=== PATIENT | female | born 1960 | race African-American/Black ===

== ENCOUNTER 2017-04-10 15:14 | Emergency (ER) | payer MEDICARE, MEDICAID ==
[2017-04-10 15:46] LABS: Hematocrit 36.7 % (36.0-47.0); Red Blood Cell (RBC) Count 3.44 mill/uL (4.20-5.40); White Blood Cell (WBC) Count 3.1 thou/uL (4.8-10.8)
[2017-04-10 16:06] LABS: ALT (SGPT) 11 U/L (8-55); AST (SGOT) 17 U/L (5-34); Alkaline Phosphatase 101 U/L (40-150); Anion Gap 13 mmol/L (10-20); BUN (Urea Nitrogen) 11 mg/dL (9.8-20.1); Bilirubin, Total 0.2 mg/dL (0.2-1.2); CK (CPK) 80 U/L (29-168); Calc. Creatinine Clearance 0 mL/min (70-130); Calcium 8.6 mg/dL (7.8-10.44); Carbon Dioxide 24 mmol/L (22-29); Chloride 99 mmol/L (98-107); Estimated GFR-MDRD 39; Globulin 3.3 g/dL (2.4-3.5); Protein, Total 7.1 g/dL (6.0-8.3)
[2017-04-10 16:10] LABS: Troponin I Less than 0.010 ng/mL (< 0.028)
[2017-04-10 16:28] LABS: #Lymphocytes 1.4 thou/uL (1.20-3.40); #Monocytes 0.3 thou/uL (0.11-0.59); #Neutrophils 1.3 thou/uL (1.40-6.50); %Basophils 1.5 % (0.0-1.0); %Eosinophils 1.1 % (0.0-10.0); %Lymphocytes 46.9 % (21.0-51.0); %Monocytes 9.4 % (0.0-10.0); Macrocytosis SLIGHT = 6-15 cells (100X) (0-5/hpf)
--- NOTE | 2017-04-10 16:38 | RAD ---
PORTABLE CHEST: History: Respiratory distress. Comparison: 05-06-16 FINDINGS: Heart size is within normal limits. Internal defibrillator device is present. The lungs are clear of infiltrate. There are no significant bony findings. There are no signs of failure. IMPRESSION: No active intrathoracic disease. POS: [facility]
[2017-04-10] MEDS ORDERED: Metoclopramide HCl 10 MG/2 ML VIAL ONE (16:42)
[2017-04-10] MEDS ORDERED: Meclizine HCl 25 MG TAB ONE (17:09)
--- NOTE | 2017-04-10 17:24 | CT ---
CT OF THE BRAIN WITHOUT CONTRAST 04/10/17 COMPARISON: 12/01/07 HISTORY: Intermittent dizziness that is exacerbated with standing up. TECHNIQUE: Multiple contiguous axial images were obtained in a CT of the brain without contrast. FINDINGS: There are a few scattered hypodensities in the subcortical and periventricular white matter, likely secondary to small vessel ischemic disease. No large confluent infarction is seen. There is no evide nce of hydrocephalus, intracranial hemorrhage or extra-axial fluid collection. The calvarium and overlying soft tissues are unremarkable. The visualized paranasal sinuses and mast oid air cells are well aerated. IMPRESSION: No evidence of acute intracranial abnormality. POS: [facility]
== END 2017-04-10 19:59 | disposition home or self-care (01) ==
LOC: ERS 15:14
DX: R42 Dizziness and giddiness (principal); I10 Essential (primary) hypertension; F32.9 Major depressive disorder, single episode, unspecified; Z21 Asymptomatic human immunodeficiency virus [HIV] infection status; Z95.0 Presence of cardiac pacemaker; Z79.82 Long term (current) use of aspirin; Z79.899 Other long term (current) drug therapy
CPT/HCPCS: 36415; 70450; 71010; 80053; 82553; 84484; 85025; 93005; 94760; 96365; J2765

== ENCOUNTER 2018-01-22 22:03 | Inpatient (IN) | payer MEDICARE, MEDICAID ==
[2018-01-23 00:22] LABS: Bilirubin Negative (Negative); Blood, Urine Negative (Negative); Clarity CLEAR (Clear); Glucose, Urine (Dipstick) Negative (Negative); Leukocyte Negative (Negative); Nitrite Negative (Negative); Protein, Urine (Dipstick) Negative (Neg-Trace); Specific Gravity, Urine 1.005 (1.002-1.036); Urobilinogen 0.2 mg/dL (0.2-1.0)
[2018-01-23 00:36] LABS: #Lymphocytes 1.4 thou/uL (1.20-3.40); #Monocytes 0.3 thou/uL (0.11-0.59); #Neutrophils 3.6 thou/uL (1.40-6.50); %Basophils 0.5 % (0.0-1.0); %Eosinophils 0.8 % (0.0-10.0); %Lymphocytes 26.3 % (21.0-51.0); %Monocytes 5.5 % (0.0-10.0); %Neutrophils 66.9 % (42.0-75.0); Hemoglobin 12.4 g/dL (12.0-16.0); Mean Corpuscular HGB CONC 35.2 g/dL (32.0-36.0); Mean Corpuscular Hemoglobin 34.9 pg (27.0-31.0); Mean Corpuscular Volume 99.2 fL (78.0-98.0); Mean Platelet Volume 6.9 fL (7.4-10.4); Platelet Count 241 thou/uL (130-400); RBC Distribution Width 10.6 % (11.5-14.5); Red Blood Cell (RBC) Count 3.56 mill/uL (4.20-5.40); White Blood Cell (WBC) Count 5.3 thou/uL (4.8-10.8)
[2018-01-23 00:57] LABS: Anion Gap 13 mmol/L (10-20); BUN (Urea Nitrogen) 12 mg/dL (9.8-20.1); Calc. Creatinine Clearance 0 mL/min (70-130); Carbon Dioxide 23 mmol/L (22-29); Chloride 89 mmol/L (98-107); Estimated GFR-MDRD 56; Glucose 112 mg/dL (70-105); Potassium 3.9 mmol/L (3.5-5.1); Sodium 121 mmol/L (136-145)
[2018-01-23] MEDS ORDERED: Ondansetron ODT 4 MG TAB ONE (01:49)
[2018-01-23] MEDS ORDERED: Ondansetron HCl/PF 4 MG/2 ML Vial IVP PRN (02:54)
[2018-01-23] MEDS ORDERED: Ondansetron ODT 4 MG TAB SL PRN (02:54)
[2018-01-23] MEDS ORDERED: Acetaminophen 325 MG TAB PO PRN (02:54)
--- NOTE | 2018-01-23 03:02 | PDOC.FPRHP ---
- History of Present Illness Chief Complaint: feeling dehydrated History of Present Illness: Pt is 57yo F with a PMH of CHF (with AICD), HIV, and HTN who presented to the ED feeling dehydrated with nausea/vomiting. Pt states she was thirsty at home and had been drinking more water than normal (couldn't quantify). Per family, she always drinks a lot of water. She was also feeling feverish and chilled. Pt complains of dysuria and polyuria. Patient denies COLÓN or vision changes, recent illness or cough, or diarrhea. Denies seizures. Once arriving to the ED, pt was hypertensive 161/100. Belly was distended and a bladder scan showed retained urine. Mercedes drained 750 cc of fluid. UA was normal. BMP revealed sodium to be 121, and chloride to be 81. - Allergies/Adverse Reactions Allergies Allergy/AdvReac Type Severity Reaction Status Date / Time No Known Allergies Allergy Verified 01/23/18 03:16 - Home Medications Medication Instructions Recorded Confirmed Type Aspirin [Aspirin EC] 81 mg PO DAILY 06/24/14 01/23/18 History Furosemide 20 mg PO DAILY 06/24/14 01/23/18 History Nortriptyline HCl 25 mg PO HS 06/24/14 01/23/18 History risperiDONE [RisperDAL] 2 mg PO HS 06/24/14 01/23/18 History traZODone HCl 100 mg PO HS 06/24/14 01/23/18 History Docusate [Colace] 100 mg PO BID #60 cap 05/07/16 01/23/18 Rx Polyethylene Glycol 3350 [Miralax] 17 gm PO DAILY #7 pk 05/07/16 01/23/18 Rx Carvedilol [Carvedilol] 25 mg PO BID 01/23/18 01/23/18 History Dolutegravir Sodium [Tivicay] 50 mg PO DAILY 01/23/18 01/23/18 History Emtricitabine/Tenofov Alafenam 1 tab PO DAILY 01/23/18 01/23/18 History [Descovy 200-25 mg Tablet] Losartan Potassium 50 mg PO DAILY 01/23/18 01/23/18 History - History PMHx: CHF, HIV, HTN, depression, glaucoma PSHx: AICD insertion FHx: sister-leukemia; Mother-PA @ 64 yrs; denied hx DM Social: never smoker, no alcohol or drugs. with 3 children. - Review of Systems General: reports: fever/chills, other (eating well). denies: night sweats, fatigue Eyes: reports: other (denies acute vision changes, states she needs to update her glasses Rx) ENT: denies: nasal congestion, rhinorrhea Respiratory: denies: cough, congestion, shortness of breath, exercise intolerance Cardiovascular: denies: chest pain, palpitation, edema Gastrointestinal: reports: nausea, vomiting, constipation. denies: diarrhea, abdominal pain, GI bleeding Genitourinary: reports: dysuria, polyuria. denies: incontinence, discharge Skin: reports: lesions (large bruise on left upper arm). denies: rashes Neurological: denies: numbness, weakness Psychological: reports: depression (well controlled) - Vital signs BP: [161/100] HR: [66] RR: [18] Tmax: [97.9] Pox: [99]% on [RA] Wt: [] - Physical Exam Constitutional: NAD, awake, alert and oriented HEENT: normocephalic and atraumatic, PERRLA, EOMI, oropharynx clear, other ( mucous membranes slightly dry) Neck: supple, no LAD Heart: RRR, normal S1/S2, pulses present, no edema, other (systolic 2/6 murmur, no rubs or gallops) Lungs: CTAB, no respiratory distress, good air movement, no rales/rhonchi, no wheezing, no retractions Abdomen: soft, bowel sounds present, no masses/distention, other (lower abdomen tender to palpation; no CV tenderness) Musculoskeletal: normal structure, normal tone Neurological: no focal deficit Skin: no rash/lesions, capillary refill <2 seconds, no jaundice Heme/Lymphatic: other (large hematoma on left upper arm) Psychiatric: other (slowed speech) FMR H&P: Results - Labs Result Diagrams: 01/23/18 00:26 01/23/18 09:56 Lab results: WBC 5.3 thou/uL (4.8-10.8) 01/23/18 00:26 Hgb 12.4 g/dL (12.0-16.0) 01/23/18 00:26 Hct 35.4 % (36.0-47.0) L 01/23/18 00:26 MCV 99.2 fL (78.0-98.0) H 01/23/18 00:26 Plt Count 241 thou/uL (130-400) 01/23/18 00:26 Neutrophils % 66.9 % (42.0-75.0) 01/23/18 00:26 Sodium 121 mmol/L (136-145) L 01/23/18 00:26 Potassium 3.9 mmol/L (3.5-5.1) 01/23/18 00:26 Chloride 89 mmol/L (98-107) L 01/23/18 00:26 Carbon Dioxide 23 mmol/L (22-29) 01/23/18 00:26 BUN 12 mg/dL (9.8-20.1) 01/23/18 00:26 Creatinine 1.20 mg/dL (0.6-1.1) H 01/23/18 00:26 Glucose 112 mg/dL (70-105) H 01/23/18 00:26 Calcium 9.0 mg/dL (7.8-10.44) 01/23/18 00:26 Urine Ketones Negative mg/dL (Negative) 01/22/18 23:50 Urine Blood Negative (Negative) 01/22/18 23:50 Urine Nitrite Negative (Negative) 01/22/18 23:50 Ur Leukocyte Esterase Negative (Negative) 01/22/18 23:50 FMR H&P: A/P - Problem List (1) Hyponatremia with decreased serum osmolality Current Visit: Yes Status: Chronic Code(s): E87.1 - HYPO-OSMOLALITY AND HYPONATREMIA (2) Acute urinary retention Current Visit: Yes Status: Acute Code(s): R33.8 - OTHER RETENTION OF URINE (3) Polydipsia Current Visit: Yes Status: Acute Code(s): R63.1 - POLYDIPSIA (4) HIV (human immunodeficiency virus infection) Current Visit: No Status: Chronic Comment: on atripla (5) Hypertension Current Visit: No Status: Chronic Code(s): I10 - ESSENTIAL (PRIMARY) HYPERTENSION (6) Glaucoma Current Visit: Yes Status: Chronic Code(s): H40.9 - UNSPECIFIED GLAUCOMA (7) Hypochloremia Current Visit: Yes Status: Acute Code(s): E87.8 - OTH DISORDERS OF ELECTROLYTE AND FLUID BALANCE, NEC (8) Depression Current Visit: Yes Status: Chronic Code(s): F32.9 - MAJOR DEPRESSIVE DISORDER, SINGLE EPISODE, UNSPECIFIED - Plan Euvolemic Hypotonic Hyponatremia -Sodium 121, polydipsia. -urine osm-57 -urinary sodium- 21 -waiting on serum osmolarity -Restrict fluids to 1000 ml, correct Na slowly. Trend BMP -Regular diet -TSH Hypochloremia -fluid restricted, following BMPs Acute Urinary retention -mercedes in place -UA nl -strict I/Os -Neurogenic bladder vs constipation HIV -continue home meds after med rec HTN -labetolol PRN Depression -well controlled. continue home meds after med rec Glaucoma -continue home meds Code: full FMR H&P: Upper Level - Pertinent history 57 yr old AAF with PMH of HIV, CHF with AICD who presents for subjective fever, chills, and feeling dehydrated. She states she is having painful urination and later in the afternoon she couldnt urinate. She reports excessive water intake. Her family emphasizes that she is always drinking water. Likely around 7-8 water bottles daily. She denies cough, sore throat, ear pain, chest pain, SOB, skin changes, or new rashes. Denies diarrhea. She is followed by Dr. Ritchie for her HIV. - Pertinent findings Gen: NAD, alert and oriented to person, place, time, situation Cardiac: RRR, no M/R/G Lungs: CTAB, no wheezes, rhales, rhonchi Neuro: CN 2-12 intact, strength 5/5 in BLE/BUE EXT: 2+ post tibial pulse bilaterally, no edema in BLE - Plan Date/Time: 01/23/18 0247 I, [Dulce De Leon], have evaluated this patient and agree with findings/plan as outlined by help desk intern resident. Pertinent changes/additions are listed here. 57 yr old female with acute urinary retention and feeling dehydrated. 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 Acute urinary retention -s/p mercedes -monitor I/O -unclear etiology Mild ORLANDO on CKD stage 2 -monitor daily -possibly 2/2 urinary retention HTN -cont home meds when list available -labetalol PRN for now HIV -patient afebrile, no tachycardia, no WBC, normal RR -cont home meds CHF -s/p AICD -[facility]2016 and EF of 50-55%, patient unsure of status Depression Glaucoma Attending Addendum - Attending Addendum Date/Time: 01/23/18 0930 I personally evaluated the patient and discussed the management with Dr. Debra Santiago /Haley. I agree with the History, Examination, Assessment and Plan documented above with any addition or exceptions noted below. Patient with history of HIV, HTN, CHF with normal EF 2015, Depression presenting with feelings of dehydration, nausea, vomiting over the last few days. Reports generally not feeling well. On admission, she was noted to have a euvolemic hypotonic hyponatremia, urinary retention that was alleviated after mercedes catheter placement, and a mild ORLANDO on CKD. 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 She does endorse drinking lots of fluids recently. We do not currently have a medication list on her but will obtain that. Mercedes has been placed and will attempt voiding trial after medication effect can be excluded. Consider Urology consult if no improvement. Monitor renal function since we will be fluid restricting her at this time for her hyponatremia. Sodium has been steadily increasing and anticipate 1-2 days hospitalization if she continues to improve.
[2018-01-23 04:20] LABS: Osmolality, Urine 57 mOsm/kg (300-900)
[2018-01-23] MEDS ORDERED: Labetalol HCl 100 MG/20 ML VIAL SLOW IVP PRN (04:23)
[2018-01-23 04:37] LABS: Sodium, Urine 21 mmol/L (Not Available)
[2018-01-23 06:12] LABS: Anion Gap 11 mmol/L (10-20); BUN (Urea Nitrogen) 10 mg/dL (9.8-20.1); Calc. Creatinine Clearance 69 mL/min (70-130); Calcium 9.4 mg/dL (7.8-10.44); Carbon Dioxide 25 mmol/L (22-29); Chloride 97 mmol/L (98-107); Estimated GFR-MDRD 59; Glucose 103 mg/dL (70-105); Sodium 129 mmol/L (136-145)
--- NOTE | 2018-01-23 08:20 | PDOC.FM ---
- Subjective Subjective: Ms. Cabrales feels better this morning. Denies nausea, vomiting, fever. Feels cold in bed. She still has some lower abdominal tenderness, but it has improved greatly. Mercedes in place. will bring med list this morning. - Objective MAR Reviewed: Yes Vital Signs & Weight: Vital Signs (12 hours) Temp Pulse Resp BP Pulse Ox 01/23/18 08:00 97.6 F 99 18 121/75 94 L 01/23/18 03:47 98 F 64 20 I&O: 01/22/18 01/23/18 01/24/18 06:59 06:59 06:59 Output Total 4000 Balance -4000 Result Diagrams: 01/23/18 00:26 01/23/18 05:15 Phys Exam - Physical Examination Constitutional: NAD HEENT: moist MMs, oral pharynx no lesions Respiratory: no wheezing, no rales, no rhonchi, clear to auscultation bilateral Cardiovascular: RRR systolic murmur, heard best in aortic area Gastrointestinal: soft, no distention, positive bowel sounds bilateral lower quadrants mildly TTP Musculoskeletal: no edema, pulses present Neurological: non-focal Psychiatric: normal affect, A&O x 3 Skin: cap refill <2 seconds Dx/Plan - Plan Plan: Euvolemic hypotonic hyponatremia asymptomatic -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 Acute urinary retention -s/p mercedes -monitor I/O -unclear etiology Hypochloremia -89 Mild ORLANDO on CKD stage 2 -monitor daily -possibly 2/2 urinary retention HTN -cont home meds when list available -labetalol PRN for now HIV -patient afebrile, no tachycardia, no WBC, normal RR -cont home meds CHF -s/p AICD -last recorded echo in [facility] is in 04/2016 and EF of 50-55%, patient unsure of status Depression Glaucoma
[2018-01-23 10:43] LABS: Amphetamine Not Detected (NotDetected); Barbiturates Screen Not Detected (NotDetected); Benzodiazepine Screen Not Detected (NotDetected); Cocaine Metabolite Screen Not Detected (NotDetected); Medtox Control Line Valid? VALID (VALID); Medtox Reader # READER 1; Methadone Not Detected (NotDetected); Methamphetamine Not Detected (NotDetected); Opiate Screen Not Detected (NotDetected); Oxycodone Screen Not Detected (NotDetected); Phencyclidine (PCP) Not Detected (NotDetected); THC/Cannabinoid Screen Not Detected (NotDetected); Tricyclic Screen Not Detected (NotDetected)
[2018-01-23 11:16] LABS: Anion Gap 11 mmol/L (10-20); BUN (Urea Nitrogen) 10 mg/dL (9.8-20.1); Calc. Creatinine Clearance 68 mL/min (70-130); Calcium 9.5 mg/dL (7.8-10.44); Carbon Dioxide 25 mmol/L (22-29); Chloride 101 mmol/L (98-107); Estimated GFR-MDRD 58; Glucose 108 mg/dL (70-105); Potassium 4.1 mmol/L (3.5-5.1); Sodium 133 mmol/L (136-145)
[2018-01-23] MEDS: Enoxaparin Sodium 40 MG/0.4 ML SYRINGE SC SCH (11:49)
[2018-01-23 11:51] LABS: Bacteria/HPF None Seen HPF (None Seen); Hyaline Casts/LPF 0-3 HYALINE CAST LPF (0-3 Hyaline); Pathc Cast-AUWi Flag 0.43 (0-2.49); Squamous Epithelial 0-3 HPF (0-3)
[2018-01-23 12:00] LABS: Renal Epithelial None Seen HPF (0-3); Transitional Epithelial NONE SEEN HPF (0-3)
--- NOTE | 2018-01-23 14:56 | CON ---
DATE OF CONSULTATION: 01/23/2018 Consultation was requested for urinary retention. HISTORY OF PRESENT ILLNESS: The patient is a 57-year-old female who was in her usual state of health except otherwise felt dehydrated, so she was drinking a significant amount of water, but unable to void, so she felt like she needed to drink more water and was still unable to void, even though she had sensation and when she attempted all she would have is burning, but not with urination because she was unable to pee, only with the urge to go. When she was urinating previously, she had no burning, cloudy or stinky urine. Normally, she has frequency every 2-3 hours, nocturia x3 for good amounts. She does admit to some hesitancy, weak stream and prior episodes of retention, not requiring a catheter for which she had to seek care. She does not wear pads or liners. She has never had gross hematuria, urinary tract infections or stones. PAST MEDICAL HISTORY: Significant for HIV diagnosed approximately 10 years ago obtained from a sexual encounter. She is taking medicines. She is not sure which ones for this and it has been stable. CHF, hypertension, depression, glaucoma, and remote history of seizures with the last being 5 years ago. PAST SURGICAL HISTORY: She had an AICD approximately 10 years ago. PAST [employer] L[employer]: She had 3 vaginal deliveries. She is postmenopausal and has had no periods. MEDICATIONS: Include aspirin 81 mg and then she is not sure what her medicines are, but she takes medicine for HIV, hypertension, depression, and glaucoma. She does not take anything else over the counter other than the aspirin. REVIEW OF SYSTEMS: Reveals no cough, no diarrhea, no recent concern for seizures or aura. No headache, shortness of breath. She does admit to cough this morning, but it has been dry. No fever or chills, although she has felt cold. No nausea or vomiting or diarrhea or constipation. She has not had a headache or vision changes. Her mammogram and Pap smear were greater than 5 years ago and both were normal then. She has never had a colonoscopy, it has been set up for this, but just has not been able to follow through. ALLERGIES: None. SOCIAL HISTORY: She does not drink, smoke or use drugs. She is with 3 kids. FAMILY HISTORY: Significant for a sister dying at 23 of leukemia. Niece had stomach cancer. Mother at 64 of heart attack. Father of epilepsy at 74. PHYSICAL EXAMINATION: VITAL SIGNS: Reveals she has been afebrile, temperature currently is 97.6, heart rate 60s-90s, satting 94%-98% on room air, blood pressure previously was elevated and now is only 121/75 and urine output is measured at 4 liters from overnight, although I was told she only had approximately 800 when the catheter was placed. There is brisk diuresis if not actual significant over-distention of the bladder in addition to that previously documented. GENERAL: She appears comfortable in the bed. She is oriented. HEENT: She does have a tremor of the jaw without any obvious skin lesions, diaphoresis or hyperemia. NECK: She has no JVD. She has no scleral icterus. CARDIOVASCULAR: Her farley was regular rate and rhythm, not tachycardic for me. There were no obvious murmurs, gallops or rubs. LUNGS: Clear to auscultation bilaterally. ABDOMEN: Soft, nondistended, nontender, no incisions noted. GENITOURINARY: She had no CVA tenderness. Catheter was draining yellow urine, but currently clamped because they are going to obtain urinalysis specimen, but the tubing fluid was clear yellow. EXTREMITIES: She had no lower extremity edema. LABORATORY DATA: Reveal mild anemia at 12.4 and 35.4. Her BUN and creatinine have improved and now are 10 and 1.14, it was 1.20 when she was admitted, it has been as high as 1.62 back in 03/2017 and more recently was 0.92 in August of this year. Her urinalysis by dip was negative; however, it was not a microscope analysis. There is no upper tract imaging at this time. ASSESSMENT AND PLAN: We have a 57-year-old female with hyponatremia is the main reason she was admitted in addition to her urinary retention. The former was likely because of excessive water intake, which exacerbated the latter. We reviewed this in detail as well as avoiding constipation, adding an alpha priya (tamsulosin) and ensuring a normal microscopic urinalysis. We discussed leaving the catheter in to allow the bladder to decompress especially if it was distended more than 1-2 liters. If she happens to stay till Saturday, then I will write for a voiding trial for Saturday morning and if she is able to void with a residual of less than 300, then a catheter does not have to be replaced. If she is to be discharged before Saturday, then she should go with the catheter and on tamsulosin and follow up in my office for a voiding trial on Saturday at 1:30 on the . Finally, if she stays through Saturday and fails a voiding trial before going home, the catheter should be replaced if her residual is more than 300 and please call my office because they would not be need to see her the next day if the catheter had to be replaced on Saturday. I wrote a prescription for tamsulosin. I ordered a microscopic analysis and unless this is concerning for either bladder infection or microhematuria, I will hold off on upper tract imaging. Of note, the bladder distention may result in microhematuria, so I will keep this in mind. For now, start tamsulosin, treat the hyponatremia per Family Medicine and anticipate followup in the office for a voiding trial if she does not have one prior to discharge. I will be out of town on Saturday and Saturday, but will leave instructions with those covering me. PAIGE
[2018-01-23] MEDS ORDERED: risperiDONE 1 MG TAB PO SCH (21:00)
[2018-01-23] MEDS: Carvedilol 25 MG TAB PO SCH (21:57)
[2018-01-23] MEDS: Docusate 100 MG CAP PO SCH (21:57)
[2018-01-24 03:20] VITALS: BMI 30.1
--- NOTE | 2018-01-24 05:15 | PDOC.FM ---
- Subjective Subjective: Mrs. Cabrales feels well and has no complaints. Eating well and following fluid restriction. Tolerating catheter well. She says she is looking forward to going home. - Objective MAR Reviewed: Yes Vital Signs & Weight: Vital Signs (12 hours) Temp Pulse Resp BP Pulse Ox 01/23/18 20:00 98.7 F 84 18 114/64 95 Weight Weight 81.98 kg I&O: 01/22/18 01/23/18 01/24/18 06:59 06:59 06:59 Intake Total 490 Output Total 4000 2125 Balance -4000 -1635 Result Diagrams: 01/23/18 00:26 01/24/18 05:24 <Lola Santillan - Last Filed: 01/24/18 08:21> - Objective Vital Signs & Weight: Vital Signs (12 hours) Temp Pulse Resp BP Pulse Ox 01/24/18 09:25 84 102/60 01/24/18 08:00 98.5 F 84 18 92 L 01/24/18 07:40 98.5 F 86 18 98/57 L 92 L Weight Weight 81.98 kg I&O: 01/23/18 01/24/18 01/25/18 06:59 06:59 06:59 Intake Total 490 500 Output Total 4000 2125 900 Balance -4000 -1635 -400 Result Diagrams: 01/23/18 00:26 01/24/18 05:24 <Cal Ernandez - Last Filed: 01/24/18 13:54> Phys Exam - Physical Examination Constitutional: NAD HEENT: moist MMs Respiratory: no rales, no rhonchi, clear to auscultation bilateral Cardiovascular: RRR systolic murmur heard best over aortic area Gastrointestinal: soft, non-tender, positive bowel sounds Musculoskeletal: no edema Neurological: non-focal Psychiatric: normal affect Skin: normal turgor, cap refill <2 seconds <Lola Santillan - Last Filed: 01/24/18 08:21> Dx/Plan (1) Hyponatremia with decreased serum osmolality Code(s): E87.1 - HYPO-OSMOLALITY AND HYPONATREMIA Status: Chronic (2) Primary polydipsia Code(s): R63.1 - POLYDIPSIA Status: Acute (3) Acute urinary retention Code(s): R33.8 - OTHER RETENTION OF URINE Status: Acute (4) Depression Code(s): F32.9 - MAJOR DEPRESSIVE DISORDER, SINGLE EPISODE, UNSPECIFIED Status : Chronic (5) HIV (human immunodeficiency virus infection) Status: Chronic (6) Hypertension Code(s): I10 - ESSENTIAL (PRIMARY) HYPERTENSION Status: Chronic - Plan Plan: Euvolemic Hypotonic Hyponatremia 2/2 primary polydipsia -Reviewed medication list for possible causes hyponatremia as well as urinary retention. Nortriptylene, losartan could have contributed. Pt responded well to fluid restriction alone, primary polydipsia seems more likely at this time. Home meds were restarted, will continue to monitor I/Os and Na+ correction. -Sodium 121 on admission. 137 now. -urine osm-57, urinary sodium- 21, serum osm 272 -TSH normal -Restrict fluids to 1000 ml Acute Urinary retention -Medications vs neurogenic bladder vs constipation -mercedes in place -strict I/Os -I/Os: net -1635 in past 24hrs. -Dr. Travis consulted: avoid constipation, tamsulosin, microscopic UA -voiding trial protocol per Dr. Travis CKD stage 3 -Cr 1.2 on admission->1.25 today with GFR in the 50s -Cr 0.95 in 2016. Cr 1.6 (03/2017) Hypochloremia, resolved -following BMP HIV -continue home meds Constipation -continue home meds HTN -continue home meds Depression -continue home meds Glaucoma -continue home meds <Lola Santillan - Last Filed: 01/24/18 08:21> (1) Hyponatremia with decreased serum osmolality Code(s): E87.1 - HYPO-OSMOLALITY AND HYPONATREMIA Status: Chronic (2) Acute urinary retention Code(s): R33.8 - OTHER RETENTION OF URINE Status: Acute (3) Polydipsia Code(s): R63.1 - POLYDIPSIA Status: Acute (4) HIV (human immunodeficiency virus infection) Status: Chronic (5) Hypertension Code(s): I10 - ESSENTIAL (PRIMARY) HYPERTENSION Status: Chronic (6) Glaucoma Code(s): H40.9 - UNSPECIFIED GLAUCOMA Status: Chronic (7) Hypochloremia Code(s): E87.8 - OTH DISORDERS OF ELECTROLYTE AND FLUID BALANCE, NEC Status: Acute (8) Depression Code(s): F32.9 - MAJOR DEPRESSIVE DISORDER, SINGLE EPISODE, UNSPECIFIED Status : Chronic <Cal Ernandez - Last Filed: 01/24/18 13:54> Attending Addendum - Attending Addendum Date/Time: 01/24/18 5244 I personally evaluated the patient and discussed the management with Dr. Santillan. I agree with the History, Examination, Assessment and Plan documented above with any addition or exceptions noted below. Patient doing well this morning and feels back to baseline. Her sodium level has returned to normal, and we expect that this is likely a combination of polydipsia as confirmed by her family, and medication effect. She has done well on fluid restriction and has instructions on how to continue this outpatient. She will follow up with psychiatry to discuss alternative treatment regimens that may not increase her risk of hyponatremia. Her urine retention is stable and instructions provided by Urology. Patient to be discharged with outpatient urology follow up on Saturday. <Cal Ernandez - Last Filed: 01/24/18 13:54>
[2018-01-24 05:54] LABS: Anion Gap 10 mmol/L (10-20); BUN (Urea Nitrogen) 11 mg/dL (9.8-20.1); Calc. Creatinine Clearance 63 mL/min (70-130); Calcium 9.2 mg/dL (7.8-10.44); Carbon Dioxide 26 mmol/L (22-29); Chloride 105 mmol/L (98-107); Estimated GFR-MDRD 53; Glucose 94 mg/dL (70-105); Potassium 4.3 mmol/L (3.5-5.1); Sodium 137 mmol/L (136-145)
[2018-01-24] MEDS ORDERED: Aspirin 81 mg Enteric Coated Tablet PO SCH (09:00)
[2018-01-24] MEDS ORDERED: Polyethylene Glycol 3350 17 GM Packet PO SCH (09:00)
[2018-01-24] MEDS ORDERED: Emtricitabine/Tenofov Alafenam [Descovy 200-25 Mg Tablet] PO SCH (09:00)
[2018-01-24] MEDS ORDERED: Losartan 25 MG TAB PO SCH (09:00)
[2018-01-24] MEDS ORDERED: Furosemide 40 MG TAB PO SCH (09:00)
[2018-01-24] MEDS ORDERED: Tamsulosin HCl 0.4 MG CAP PO SCH (09:00)
[2018-01-24] MEDS ORDERED: Dolutegravir Sodium [Tivicay] 50 MG PO SCH (09:00)
[2018-01-24] MEDS: Carvedilol 25 MG TAB PO SCH (09:25)
[2018-01-24] MEDS: Enoxaparin Sodium 40 MG/0.4 ML SYRINGE SC SCH (09:25)
[2018-01-24] MEDS: Docusate 100 MG CAP PO SCH (09:25)
[2018-01-24 09:40] VITALS: BP 102/60
[2018-01-24 11:58] VITALS: TEMP 98.5
[2018-01-24] MEDS ORDERED: Nortriptyline HCl 25 MG CAP PO SCH (21:00)
--- NOTE | 2018-01-25 16:11 | DIS ---
DATE OF ADMISSION: 01/23/2018 DATE OF DISCHARGE: 01/24/2018 RESIDENT: Dr. Lola Santillan. ADMITTING ATTENDING: Cal Ernandez M.D. DISCHARGE ATTENDING: Cal Ernandez M.D. CONSULTATIONS: Dr. Travis, Urology. PROCEDURES: None. PRIMARY DIAGNOSES: 1. 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 2. Acute urinary retention. SECONDARY DIAGNOSES: Chronic kidney disease stage 3, HIV, constipation, hypertension, depression, gl aucoma. DISCHARGE MEDICATIONS: 1. Risperidone 2 mg p.o. at bedtime. 2. Nortriptyline 25 mg p.o. at bedtime. 3. Furosemide 20 mg p.o. daily. 4. Aspirin 81 mg p.o. daily. 5. Docusate 100 mg p.o. b.i.d. 6. MiraLax 17 grams p.o. daily. 7. Carvedilol 25 mg p.o. b.i.d. 8. Descovy one tab p.o. daily. 9. Tivicay 50 mg p.o. daily. 10. Losartan 50 mg p.o. daily. DISCONTINUED MEDICATIONS: Trazodone 100 mg p.o. at bedtime because patient was not taking at home. HISTORY OF PRESENT ILLNESS: The patient is a 57-year-old female who presented to the ER feeling dehy drated with nausea and vomiting. She says that she is very thirsty and was drinking more water than normal. Also felt feverish and chilled. She also complained of some dysuria and polyuria. Labs wer e drawn and she was found to be hyponatremic. The hyponatremia was hypotonic and euvolemic. I's and O's were monitored. Bladder scan showed 750 mL and patient had a catheter placed. The patient was placed on 1000 mL fluid restriction and her sodium levels gradually improved to normal limits. Medic ations as cause of her condition were considered, but primary polydipsia seemed to be the most likely etiology for this admission. Could consider medication changes in the outpatient setting for possib le hyponatremia and urinary retention causes. DISPOSITION: Stable. DISCHARGE INSTRUCTIONS: Home. DIET: Regular diet with fluid restriction. ACTIVITY: As tolerated. FOLLOWUP: With Dr. Travis on Saturday at 1:30 p.m. to do a voiding trial.
== END 2018-01-24 14:17 | disposition home or self-care (01) | DRG 641 ==
LOC: ERS 22:03 → ONC 01-23 01:48 → OBSVTOIN 01-23 03:08
PROVIDERS: ADMIT Student in an Organized Health Care Education/Training Program; ATTEND Student in an Organized Health Care Education/Training Program
DX: E87.1 Hypo-osmolality and hyponatremia (principal); I13.0 Hypertensive heart and chronic kidney disease with heart failure and stage 1 through stage 4 chronic kidney disease, or unspecified chronic kidney disease; E86.0 Dehydration; R63.1 Polydipsia; R33.9 Retention of urine, unspecified; N18.3 Chronic kidney disease, stage 3 (moderate); K59.00 Constipation, unspecified; Z21 Asymptomatic human immunodeficiency virus [HIV] infection status; F32.9 Major depressive disorder, single episode, unspecified; Z79.82 Long term (current) use of aspirin; Z95.810 Presence of automatic (implantable) cardiac defibrillator
CPT/HCPCS: 36415; 51702; 51798; 80048; 80306; 81003; 81015; 83930; 83935; 84133; 84300; 84443; 85025; 87086; A4216; A4353; J1650; Q0162

== ENCOUNTER 2018-04-17 23:23 | Emergency (ER) | payer MEDICARE, MEDICAID ==
[2018-04-18 00:22] LABS: Bilirubin Negative (Negative); Blood, Urine Negative (Negative); Clarity CLEAR (Clear); Glucose, Urine (Dipstick) Negative (Negative); Leukocyte Large (Negative); Nitrite Negative (Negative); Protein, Urine (Dipstick) Negative (Neg-Trace); Urobilinogen 0.2 mg/dL (0.2-1.0)
[2018-04-18 00:25] LABS: Pathc Cast-AUWi Flag 0.29 (0-2.49)
[2018-04-18 00:30] LABS: Specific Gravity, Urine 1.002 (1.002-1.036)
[2018-04-18 00:40] LABS: RBC/HPF 0-3 HPF (0-3)
[2018-04-18 00:41] LABS: Bacteria/HPF None Seen HPF (None Seen); Hyaline Casts/LPF NONE SEEN LPF (0-3 Hyaline); Renal Epithelial None Seen HPF (0-3); Transitional Epithelial NONE SEEN HPF (0-3); Yeast-All Forms None Seen HPF (None Seen)
== END 2018-04-18 01:33 | disposition home or self-care (01) ==
LOC: ERS 23:23
DX: R42 Dizziness and giddiness (principal); I10 Essential (primary) hypertension; B20 Human immunodeficiency virus [HIV] disease; F32.9 Major depressive disorder, single episode, unspecified
CPT/HCPCS: 81003; 81015; 99283

== ENCOUNTER 2018-11-08 21:56 | Emergency (ER) | payer MEDICARE, MEDICAID ==
[2018-11-08 23:30] LABS: #Lymphocytes 1.4 thou/uL (1.20-3.40); #Monocytes 0.3 thou/uL (0.11-0.59); #Neutrophils 3.8 thou/uL (1.40-6.50); %Basophils 0.8 % (0.0-1.0); %Eosinophils 0.7 % (0.0-10.0); %Lymphocytes 24.8 % (21.0-51.0); %Monocytes 5.3 % (0.0-10.0); %Neutrophils 68.5 % (42.0-75.0); Hemoglobin 12.8 g/dL (12.0-16.0); Mean Corpuscular HGB CONC 33.8 g/dL (32.0-36.0); Mean Corpuscular Hemoglobin 34.4 pg (27.0-31.0); Platelet Count 288 thou/uL (130-400); RBC Distribution Width 10.8 % (11.5-14.5); Red Blood Cell (RBC) Count 3.73 mill/uL (4.20-5.40); White Blood Cell (WBC) Count 5.6 thou/uL (4.8-10.8)
--- NOTE | 2018-11-08 23:33 | RAD ---
PORTABLE CHEST ONE VIEW: 11/08/18 at 11:15 p.m. HISTORY: Swelling of the bilateral lower extremities. FINDINGS: Comparison made with exam of 04/10/17. A left AICD remains in place. The heart size is normal. The lungs are well expanded without focal ar eas of consolidation, pneumothoraces, ross pulmonary edema or pleural effusions. IMPRESSION: NO acute process. POS: [facility]
[2018-11-08 23:50] LABS: ALT (SGPT) 9 U/L (8-55); AST (SGOT) 16 U/L (5-34); Albumin 4.1 g/dL (3.5-5.0); Alkaline Phosphatase 93 U/L (40-150); Anion Gap 13 mmol/L (10-20); BUN (Urea Nitrogen) 12 mg/dL (9.8-20.1); Bilirubin, Total 0.6 mg/dL (0.2-1.2); Calc. Creatinine Clearance 0 mL/min (70-130); Calcium 9.6 mg/dL (7.8-10.44); Carbon Dioxide 25 mmol/L (22-29); Chloride 95 mmol/L (98-107); Estimated GFR-MDRD 55; Glucose 100 mg/dL (70-105); Potassium 4.2 mmol/L (3.5-5.1); Protein, Total 7.1 g/dL (6.0-8.3); Sodium 129 mmol/L (136-145)
== END 2018-11-09 00:10 | disposition home or self-care (01) ==
LOC: ERS 21:56
DX: M79.89 Other specified soft tissue disorders (principal); I10 Essential (primary) hypertension; B20 Human immunodeficiency virus [HIV] disease; F32.9 Major depressive disorder, single episode, unspecified
CPT/HCPCS: 36415; 71045; 80053; 83880; 84484; 85025; 93005

== ENCOUNTER 2018-11-15 00:19 | Emergency (ER) | payer MEDICARE, MEDICAID ==
[2018-11-15 01:15] LABS: #Lymphocytes 1.3 thou/uL (1.20-3.40); #Monocytes 0.4 thou/uL (0.11-0.59); #Neutrophils 3.1 thou/uL (1.40-6.50); %Basophils 0.2 % (0.0-1.0); %Lymphocytes 26.8 % (21.0-51.0); %Monocytes 8.5 % (0.0-10.0); %Neutrophils 63.4 % (42.0-75.0); Hemoglobin 12.3 g/dL (12.0-16.0); Mean Corpuscular Hemoglobin 34.2 pg (27.0-31.0); Mean Platelet Volume 6.9 fL (7.4-10.4); Platelet Count 283 thou/uL (130-400); RBC Distribution Width 10.8 % (11.5-14.5); Red Blood Cell (RBC) Count 3.59 mill/uL (4.20-5.40); White Blood Cell (WBC) Count 4.8 thou/uL (4.8-10.8)
[2018-11-15 01:35] LABS: ALT (SGPT) 8 U/L (8-55); AST (SGOT) 13 U/L (5-34); Alkaline Phosphatase 94 U/L (40-150); Anion Gap 12 mmol/L (10-20); BUN (Urea Nitrogen) 9 mg/dL (9.8-20.1); Bilirubin, Total 0.4 mg/dL (0.2-1.2); Calc. Creatinine Clearance 0 mL/min (70-130); Calcium 9.1 mg/dL (7.8-10.44); Carbon Dioxide 22 mmol/L (22-29); Chloride 98 mmol/L (98-107); Estimated GFR-MDRD 68; Globulin 3.1 g/dL (2.4-3.5); Glucose 108 mg/dL (70-105); Lipase 17 U/L (8-78); Potassium 3.4 mmol/L (3.5-5.1); Protein, Total 7.1 g/dL (6.0-8.3); Sodium 129 mmol/L (136-145)
[2018-11-15 01:53] LABS: Clarity Clear (Clear)
[2018-11-15 01:54] LABS: Bilirubin Negative (Negative); Blood, Urine Trace (Negative); Glucose, Urine (Dipstick) Negative (Negative); Leukocyte Large (Negative); Nitrite Negative (Negative); Protein, Urine (Dipstick) Negative (Neg-Trace); Specific Gravity, Urine 1.001 (1.002-1.036); Urobilinogen 0.2 mg/dL (0.2-1.0)
[2018-11-15 02:02] LABS: Bacteria/HPF None Seen HPF (None Seen); Crystals/HPF None Seen HPF (Negative); Hyaline Casts/LPF NONE SEEN LPF (0-3 Hyaline); Oval Fat Bodies/HPF None Seen HPF (None Seen); RBC/HPF 0-3 HPF (0-3); Renal Epithelial None Seen HPF (0-3); Sperm/HPF None Seen HPF (None Seen); Squamous Epithelial None Seen HPF (0-3); Transitional Epithelial 0-3 HPF (0-3); Trichomonas/HPF None Seen HPF (None Seen); Yeast-All Forms None Seen HPF (None Seen)
== END 2018-11-15 02:53 | disposition home or self-care (01) ==
LOC: ERS 00:19
DX: N39.0 Urinary tract infection, site not specified (principal); B20 Human immunodeficiency virus [HIV] disease; F32.9 Major depressive disorder, single episode, unspecified; I11.0 Hypertensive heart disease with heart failure; I50.9 Heart failure, unspecified
CPT/HCPCS: 36415; 51701; 80053; 81003; 81015; 83690; 84484; 85025; 87086; 93005; A4353

== ENCOUNTER 2019-03-14 19:33 | Emergency (ER) | payer MEDICARE, MEDICAID ==
[2019-03-14 20:06] LABS: #Eosinphils 0.1 thou/uL (0.0-0.7); #Monocytes 0.4 thou/uL (0.11-0.59); #Neutrophils 2.6 thou/uL (1.40-6.50); %Basophils 0.7 % (0.0-1.0); %Lymphocytes 38.5 % (21.0-51.0); %Monocytes 8.2 % (0.0-10.0); %Neutrophils 51.7 % (42.0-75.0); Hemoglobin 12.1 g/dL (12.0-16.0); Mean Corpuscular HGB CONC 34.5 g/dL (32.0-36.0); Mean Corpuscular Hemoglobin 34.8 pg (27.0-31.0); Mean Platelet Volume 6.9 fL (7.4-10.4); Platelet Count 244 thou/uL (130-400); RBC Distribution Width 10.8 % (11.5-14.5); Red Blood Cell (RBC) Count 3.48 mill/uL (4.20-5.40); White Blood Cell (WBC) Count 5.1 thou/uL (4.8-10.8)
[2019-03-14 20:26] LABS: ALT (SGPT) 10 U/L (8-55); AST (SGOT) 14 U/L (5-34); Albumin 3.9 g/dL (3.5-5.0); Alkaline Phosphatase 120 U/L (40-150); Anion Gap 13 mmol/L (10-20); BUN (Urea Nitrogen) 8 mg/dL (9.8-20.1); Bilirubin, Total 0.3 mg/dL (0.2-1.2); CK (CPK) 148 U/L (29-168); Calc. Creatinine Clearance 0 mL/min (70-130); Calcium 8.4 mg/dL (7.8-10.44); Carbon Dioxide 24 mmol/L (22-29); Chloride 87 mmol/L (98-107); Estimated GFR-MDRD 51; Globulin 2.6 g/dL (2.4-3.5); Glucose 92 mg/dL (70-105); Lipase 19 U/L (8-78); Potassium 3.6 mmol/L (3.5-5.1); Protein, Total 6.5 g/dL (6.0-8.3); Sodium 120 mmol/L (136-145)
--- NOTE | 2019-03-14 20:30 | RAD ---
PORTABLE CHEST ONE VIEW: 03/14/19 at 8:13 p.m. HISTORY: Chest pain. FINDINGS: Comparison made to exam of 11/08/18. Left sided AICD remains in place. The heart size is normal. The aorta is tortuous. The lungs are well expanded without focal areas of consolidation, pneumothoraces or pleural effusions. IMPRESSION: No radiographic evidence of acute cardiopulmonary process. POS: [facility]
[2019-03-14] MEDS ORDERED: Mag-Al 1200 mg/1200 mg/30 ML UDCUP ONE (20:47)
[2019-03-14] MEDS ORDERED: Lidocaine Viscous Sol 2% 15 ml UD Cup ONE (20:47)
== END 2019-03-14 22:00 | disposition home or self-care (01) ==
LOC: ERS 19:33
DX: R07.89 Other chest pain (principal); E87.1 Hypo-osmolality and hyponatremia; I10 Essential (primary) hypertension; F32.9 Major depressive disorder, single episode, unspecified
CPT/HCPCS: 36415; 71045; 80053; 82550; 83690; 84484; 85025; 93005

== ENCOUNTER 2019-04-15 01:33 | Emergency (ER) | payer MEDICARE, MEDICAID ==
[2019-04-15 03:07] LABS: Bilirubin Negative (Negative); Blood, Urine Negative (Negative); Clarity Clear (Clear); Glucose, Urine (Dipstick) Normal (Negative); Leukocyte 500 Leu/uL (Negative); Nitrite Negative (Negative); Protein, Urine (Dipstick) Negative (Neg-Trace); RBC/HPF None Seen HPF (0-3); Squamous Epithelial None Seen HPF (0-3); Urobilinogen Normal mg/dL (Less than 2)
[2019-04-15 03:10] LABS: Bacteria/HPF 1+ HPF (None Seen)
== END 2019-04-15 03:24 | disposition home or self-care (01) ==
LOC: ERS 01:33
DX: T83.84XA Pain due to genitourinary prosthetic devices, implants and grafts, initial encounter (principal); N39.0 Urinary tract infection, site not specified; I11.0 Hypertensive heart disease with heart failure; B20 Human immunodeficiency virus [HIV] disease; I50.9 Heart failure, unspecified; F32.9 Major depressive disorder, single episode, unspecified; Z79.899 Other long term (current) drug therapy
CPT/HCPCS: 51701; 81003; 81015; 87077; 87086; 87186; A4353

== ENCOUNTER 2019-04-23 21:29 | Inpatient (IN) | payer MEDICARE, MEDICAID ==
--- NOTE | 2019-04-23 22:26 | RAD ---
XR Chest Pa Lat STANDARD History: Chest pain Comparison: Radiograph March 14, 2019 Findings: Scarring left lung base. Heart size mildly enlarged. AICD/pacer leads project over the righ t atrium, right ventricle, and coronary sinus. No acute osseous abnormality. Impression: No acute intrathoracic abnormality.
[2019-04-23 22:27] LABS: Hemoglobin 12.1 g/dL (12.0-16.0); Mean Corpuscular HGB CONC 34.7 g/dL (32.0-36.0); Mean Corpuscular Hemoglobin 35.3 pg (27.0-31.0); Platelet Count 243 thou/uL (130-400); RBC Distribution Width 11.4 % (11.5-14.5); Red Blood Cell (RBC) Count 3.42 mill/uL (4.20-5.40); White Blood Cell (WBC) Count 3.6 thou/uL (4.8-10.8)
[2019-04-23 22:39] LABS: ALT (SGPT) 13 U/L (8-55); AST (SGOT) 17 U/L (5-34); Alkaline Phosphatase 97 U/L (40-110); Anion Gap 12 mmol/L (10-20); BUN (Urea Nitrogen) 8 mg/dL (9.8-20.1); Bilirubin, Total 0.4 mg/dL (0.2-1.2); CK (CPK) 84 U/L (29-168); Calc. Creatinine Clearance 0 mL/min (70-130); Calcium 8.7 mg/dL (7.8-10.44); Carbon Dioxide 22 mmol/L (23-31); Chloride 98 mmol/L (98-107); Estimated GFR-MDRD 62; Globulin 3.2 g/dL (2.4-3.5); Glucose 93 mg/dL (80-115); Potassium 3.6 mmol/L (3.5-5.1); Protein, Total 7.2 g/dL (6.0-8.3); Sodium 128 mmol/L (136-145)
[2019-04-23 22:49] LABS: Band 2 % (5-11); Eosinophils 2 % (0-10); Lymphocytes 45 % (21-51); MDiff Complete? YES; Monocytes 6 % (0-10); Neutrophil 44 % (42-75); Reactive Lymphocytes 1 % (0-10)
[2019-04-23] MEDS ORDERED: Aspirin Chewable 81 MG TAB ONE (23:39)
[2019-04-24 00:39] LABS: Bilirubin Negative (Negative); Blood, Urine Negative (Negative); Clarity Clear (Clear); Glucose, Urine (Dipstick) Normal (Negative); Leukocyte 500 Leu/uL (Negative); Nitrite Negative (Negative); Protein, Urine (Dipstick) Negative (Neg-Trace); Urobilinogen Normal mg/dL (Less than 2)
[2019-04-24 00:53] LABS: Bacteria/HPF 4+ HPF (None Seen); RBC/HPF 0-3 HPF (0-3); Squamous Epithelial 0-3 HPF (0-3)
[2019-04-24 02:58] VITALS: BMI 31.4
[2019-04-24 04:44] LABS: Troponin I Less than 0.010 ng/mL (< 0.028)
[2019-04-24 05:26] LABS: Troponin I Less than 0.010 ng/mL (< 0.028)
[2019-04-24] MEDS ORDERED: Acetaminophen 325 MG TAB PO PRN (11:41)
[2019-04-24] MEDS ORDERED: Guaifenesin DM 100-10/5 ML UDCUP PO PRN (11:41)
[2019-04-24] MEDS ORDERED: FLU VACC QS2019-20(6MOS UP)/PF 60 MCG/0.5 ML SYRINGE IM ONE (11:45)
[2019-04-24] MEDS ORDERED: Sodium Chloride 0.9% 1,000 ML IV SCH (11:45)
[2019-04-24] MEDS ORDERED: Prevnar 13-Val Conj/PF 0.5 ML SYRINGE IM ONE (12:30)
[2019-04-24] MEDS ORDERED: ADENOSINE 60 MG/20 ML VIAL ONE (14:36)
--- NOTE | 2019-04-24 14:46 | HP ---
REASON FOR ADMISSION: 1. Chest pain. 2. Urinary tract infection. HISTORY OF PRESENT ILLNESS: The patient gives history of vague feeling from yesterday. She can lay still in her bed. She also developed retrosternal chest pain with radiation to left shoulder. The pain was 3 to 4 out of 10 in intensity. She states she was treated for urinary tract infection 2 weeks back and was on 2 different antibiotics, one she was taking 3 times a day, the other antibiotic twice daily. She does not recall for how long she took the antibiotics for. She currently has no urinary frequency or urgency. No cough or expectoration. She ambulates by herself. No complaints of palpitation, PND, or orthopnea. The patient has significant history of HIV and states she is compliant with her medications. PAST MEDICAL AND SURGICAL HISTORY: 1. Hypertension, likely cardiomyopathy with AICD. 2. HIV, compliant with her medications per prior records. 3. History of bipolar disorder and schizophrenia, follows up with Dr. Helton with [facility]. 4. Recent UTI, for which she was treated 2 weeks back with 2 different antibiotics. CURRENT MEDICATIONS: 1. The patient is on Coreg 25 mg twice daily. 2. Losartan 50 mg daily. 3. Nortriptyline 25 mg p.o. at bedtime. 4. Risperdal 2 mg daily. 5. Tivicay 50 mg p.o. daily. 6. Lasix 20 mg daily. 7. Aspirin 81 mg daily. 8. She is also on emtricitabine in combination with tenofovir 200/25 mg daily. ALLERGIES: NO KNOWN DRUG ALLERGIES. PERSONAL HISTORY: Does not abuse alcohol or drugs. No history of smoking. FAMILY HISTORY: Mother of massive myocardial infarction at the age of 64. Father at the age of 74 years, he has had history of seizure disorder. Sister had history of leukemia. CODE STATUS: Full. Power of workers compensation defense attorney is her , Mr. Julio C Harris. REVIEW OF SYSTEMS: CONSTITUTIONAL: Negative for weight loss or gain, ability to conduct usual activities. SKIN: Negative for rash, itching. EYES: Negative for double vision, pain. ENT/MOUTH: Negative for nose bleeding, neck stiffness, pain, tenderness. CARDIOVASCULAR: Negative for palpitations, dyspnea on exertion, orthopnea. RESPIRATORY: Negative for shortness of breath, wheezing, cough, hemoptysis, fever or night sweats. GASTROINTESTINAL: Negative for poor appetite, abdominal pain, heartburn, nausea, vomiting, constipation, or diarrhea. GENITOURINARY: Negative for urgency, frequency, dysuria, nocturia. MUSCULOSKELETAL: Negative for pain, swelling. NEUROLOGIC/PSYCHIATRIC: Negative for anxiety, depression. ALLERGY/IMMUNOLOGIC: Negative for skin rash, bleeding tendency. PHYSICAL EXAMINATION: GENERAL: The patient is a 59-year-old female, who is currently not in any acute distress. VITAL SIGNS: Blood pressure 140/90, pulse 66 per minute, respiratory rate 18 per minute, temperature 98.2 degrees Fahrenheit, saturating 98% on room air. NECK: Supple. No elevated JVD. EYES: Extraocular muscles intact. Pupils reacting to light. ORAL CAVITY: Mucous membranes are dry. No exudates or congestion. CARDIOVASCULAR SYSTEM: S1 and S2 heard. Regular rhythm. RESPIRATORY SYSTEM: Air entry 2+ bilateral. No rales or rhonchi. ABDOMEN: Soft. Bowel sounds heard. No tenderness, rigidity, or guarding. EXTREMITIES: No peripheral edema or calf tenderness. VASCULAR SYSTEM: Peripheral pulses 1+ bilateral. No ischemic ulcerations or gangrene. CENTRAL NERVOUS SYSTEM: No gross focal deficits noted. The patient is alert, awake, oriented well. PSYCHIATRIC SYSTEM: The patient's mood is euthymic. No hallucinations or delusions. LABORATORY DATA: UA shows signs of infection. Chest x-ray done shows no acute intrathoracic abnormality. Troponin x3 is negative. BUN 8, creatinine 1.0, serum bicarb 22, sodium 128. Liver enzymes within normal limits. CK level is 84. Albumin is 4.0. White count of 3.6, hemoglobin 12, hematocrit 34, platelet count is 243, MCV is 102 with 44% neutrophils, 2% bands, and 45% lymphocytes. EKG done shows paced rhythm at 75 beats per minute. CLINICAL IMPRESSION AND PLAN: The patient will be under observation on telemetry for atypical chest pain, rule out acute coronary syndrome, recurrent urinary tract infection. She has had 3 sets of troponin which are negative. We will obtain a nuclear stress test. We will obtain blood and urine culture as well in view of her immunosuppression with HIV and being recently treated for UTI 2 weeks back. We will obtain folic acid and B12 levels in view of elevated MCV. We will continue her home medications of carvedilol, Tivicay, Descovy, nortriptyline, Cozaar, risperidone as before. She will be on Bactrim for now double strength twice daily for UTI. We will closely follow her on telemetry. She has had recent follow up with Dr. So, her video tape editor, in February and had a defibrillator check as well during that visit. Her last known ejection fraction based on echo done in April 2016 was 50%. She has had a stress test done as well which showed no reversible ischemia then. Job ID: [id number]
--- NOTE | 2019-04-24 15:00 | NM ---
CARDIAC SPECT: HISTORY: A 59-year-old black female with chest pain, CHF, AICD, and hypertension. TECHNIQUE: A myocardial perfusion scan was performed using a single-isotope 1-day protocol with Technetium 99m s estamibi. Nine mCi were injected intravenously for the rest exam followed by 27 mCi for the stress s tudy. Pharmacologic stress with adenosine is monitored and interpreted by Cale Marsh nurse practitio nathaly. FINDINGS: Homogeneous tracer distribution is seen in the myocardial segments on stress and rest images without fixed or reversible defects. GATED SPECT LVEF: 62%. WALL MOTION EXAM: Normal. IMPRESSION: Normal myocardial perfusion scan. POS: OFF
[2019-04-24] MEDS: Carvedilol 25 MG TAB PO SCH (20:40)
[2019-04-24] MEDS: risperiDONE 1 MG TAB PO SCH (20:40)
[2019-04-24] MEDS: Famotidine 20 MG TAB PO SCH (20:40)
[2019-04-24] MEDS: Sulfameth/Trimethoprim DS 800-160mg TAB PO SCH (20:40)
[2019-04-24] MEDS: Nortriptyline HCl 25 MG CAP PO SCH (20:40)
[2019-04-25 04:25] LABS: #Lymphocytes 0.5 thou/uL (1.20-3.40); #Monocytes 0.2 thou/uL (0.11-0.59); #Neutrophils 4.1 thou/uL (1.40-6.50); %Basophils 0.4 % (0.0-1.0); %Eosinophils 0.2 % (0.0-10.0); %Lymphocytes 9.9 % (21.0-51.0); %Monocytes 4.7 % (0.0-10.0); %Neutrophils 84.8 % (42.0-75.0); Hemoglobin 12.6 g/dL (12.0-16.0); Mean Corpuscular HGB CONC 33.8 g/dL (32.0-36.0); Mean Corpuscular Hemoglobin 35.2 pg (27.0-31.0); Mean Platelet Volume 7.3 fL (7.4-10.4); Platelet Count 231 thou/uL (130-400); RBC Distribution Width 11.7 % (11.5-14.5); Red Blood Cell (RBC) Count 3.58 mill/uL (4.20-5.40); White Blood Cell (WBC) Count 4.9 thou/uL (4.8-10.8)
[2019-04-25 04:41] LABS: Anion Gap 13 mmol/L (10-20); BUN (Urea Nitrogen) 10 mg/dL (9.8-20.1); Calc. Creatinine Clearance 63 mL/min (70-130); Calcium 8.7 mg/dL (7.8-10.44); Carbon Dioxide 21 mmol/L (23-31); Cardiac Risk 2.8 (Less than 4.5); Chloride 104 mmol/L (98-107); Cholesterol 176 mg/dl (< 200 Desired); Estimated GFR-MDRD 51; Glucose 105 mg/dL (80-115); HDL Cholesterol 63 mg/dL (>60 Neg Risk); LDL Cholesterol, Calculated 102 mg/dL; Potassium 4.6 mmol/L (3.5-5.1); Sodium 133 mmol/L (136-145); Triglycerides 53 mg/dL (Less than 150)
--- NOTE | 2019-04-25 08:21 | ULT ---
Venous duplex sonogram bilateral lower extremity HISTORY: Bilateral leg pain and edema. FINDINGS: Each common femoral vein and greater saphenous junction were evaluated along with each femo ral, deep femoral, popliteal, and posterior tibial vein. There is good color and spectral Doppler flow, compression, and augmentation. IMPRESSION: No sonographic evidence of DVT within either lower extremity.
[2019-04-25] MEDS ORDERED: Vancomycin HCl 1 GM in Premix Bag 1 BAG IVPB SCH (09:00)
[2019-04-25] MEDS ORDERED: [UNRECOGNIZED DRUG - OTHER] PO SCH (09:00)
[2019-04-25] MEDS ORDERED: (Dolutegravir Sodium [Tivicay] 50 MG) PO SCH (09:00)
[2019-04-25] MEDS: Famotidine 20 MG TAB PO SCH ×2 (09:13→22:44)
[2019-04-25] MEDS: Sulfameth/Trimethoprim DS 800-160mg TAB PO SCH (09:13)
[2019-04-25] MEDS: Aspirin 325 mg Enteric Coated Tablet PO SCH (09:13)
[2019-04-25] MEDS: Folic Acid 1 MG TAB PO SCH (09:13)
[2019-04-25] MEDS: Carvedilol 25 MG TAB PO SCH ×2 (09:13→22:44)
[2019-04-25] MEDS: Cyanocobalamin (Vitamin B-12) 1,000 MCG TAB PO SCH (09:13)
[2019-04-25] MEDS: Enoxaparin Sodium 40 MG/0.4 ML SYRINGE SC SCH (09:13)
[2019-04-25] MEDS: PATIENT'S HOME MEDICATION PO SCH (09:14)
[2019-04-25] MEDS: Dolutegravir Sodium [Tivicay] 50 MG PO SCH (09:14)
[2019-04-25] MEDS: Vancomycin HCl 1.25 GM in Sodium Chloride 0.9% 250 ML 250 ML IVPB SCH ×2 (10:23→23:41)
[2019-04-25] MEDS: Losartan 25 MG TAB PO SCH (10:26)
--- NOTE | 2019-04-25 12:39 | PDOC.HOSPP ---
- Subjective Encounter Date: 04/25/19 Encounter Time: 11:30 Subjective: had fever early am and mild now no cough/chest pain/urinary freq or urgency now says its due to flu and pna shot she got yesterday - Objective Vital Signs & Weight: Vital Signs (12 hours) Temp Pulse Resp BP Pulse Ox 04/25/19 11:50 98.6 F 80 20 112/56 L 97 04/25/19 08:12 98.6 F 94 20 107/58 L 96 04/25/19 04:11 100.3 F H 04/25/19 03:38 102.2 F H 106 H 21 H 145/87 H 96 Weight Weight 189 lb 3.2 oz I&O: 04/24/19 04/25/19 04/26/19 06:59 06:59 06:59 Intake Total 440 1692 Output Total 450 1400 Balance -10 292 Result Diagrams: 04/25/19 03:33 04/25/19 03:32 Hospitalist ROS - Medication Medications: Active Medications Generic Name Dose Route Start Last Admin Trade Name Freq PRN Reason Stop Dose Admin Acetaminophen 650 mg 04/24/19 11:41 04/25/19 03:58 Tylenol PO 650 mg Q4H PRN Administration Headache/Fever/Mild Pain (1-3) Aspirin 325 mg 04/25/19 09:00 04/25/19 09:13 Ecotrin PO 325 mg DAILY OSCAR Administration Carvedilol 25 mg 04/24/19 21:00 04/25/19 09:13 Coreg PO 25 mg BID OSCAR Administration Cyanocobalamin 1,000 mcg 04/25/19 09:00 04/25/19 09:13 Vitamin B-12 PO 1,000 mcg DAILY OSCAR Administration Enoxaparin Sodium 40 mg 04/25/19 09:00 04/25/19 09:13 Lovenox SC 40 mg 0900 OSCAR Administration Famotidine 20 mg 04/24/19 21:00 04/25/19 09:13 Pepcid PO 20 mg BID OSCAR Administration Folic Acid 1 mg 04/25/19 09:00 04/25/19 09:13 Folvite PO 1 mg DAILY OSCAR Administration Vancomycin HCl 1.25 gm/ Sodium 250 mls @ 166.667 mls/hr 04/25/19 09:00 10:23 Chloride IVPB 250 mls Q12HR OSCAR Administration Nortriptyline HCl 25 mg 04/24/19 21:00 04/24/19 20:40 Pamelor PO 25 mg HS OSCAR Administration Dolutegravir Sodium 0 each 04/25/19 09:00 04/25/19 09:14 [Tivicay] 50 Mg PO 1 each DAILY OSCAR Administration Patient Own Medication 0 each 04/25/19 09:00 04/25/19 09:14 Patient's Home Medication PO 1 each DAILY OSCAR Administration Risperidone 2 mg 04/24/19 21:00 04/24/19 20:40 Risperidone PO 2 mg HS OSCAR Administration Sodium Chloride 10 ml 04/25/19 09:00 04/25/19 09:13 Flush - Normal Saline IVF 10 ml Q12HR OSCAR Administration Trimethoprim/Sulfamethoxazole 1 tab 04/24/19 21:00 04/25/19 09:13 Bactrim Ds PO 1 tab BID OSCAR Administration - Exam General Appearance: NAD, awake alert Eye: PERRL, anicteric sclera ENT: no oropharyngeal lesions, moist mucosa Neck: supple, no JVD Heart: no murmur, no rubs Respiratory: no wheezes, no rales Gastrointestinal: soft, non-tender, non-distended, normal bowel sounds Extremities: no cyanosis, no edema Neurological: cranial nerve grossly intact, no focal deficits Psychiatric: normal affect, A&O x 3 Hosp A/P (1) UTI (urinary tract infection) Status: Acute Qualifiers: Urinary tract infection type: acute cystitis Hematuria presence: without hematuria Qualified Code(s): N30.00 - Acute cystitis without hematuria (2) Sepsis Code(s): A41.9 - SEPSIS, UNSPECIFIED ORGANISM Status: Suspected (3) Cardiomyopathy Code(s): I42.9 - CARDIOMYOPATHY, UNSPECIFIED Status: Chronic Qualifiers: Cardiomyopathy type: unspecified Qualified Code(s): I42.9 - Cardiomyopathy , unspecified (4) HIV (human immunodeficiency virus infection) Status: Chronic Qualifiers: HIV symptom status: asymptomatic Qualified Code(s): Z21 - Asymptomatic human immunodeficiency virus [HIV] infection status (5) Hypertension Code(s): I10 - ESSENTIAL (PRIMARY) HYPERTENSION Status: Chronic Qualifiers: Hypertension type: essential hypertension Qualified Code(s): I10 - Essential (primary) hypertension (6) Chest pain Code(s): R07.9 - CHEST PAIN, UNSPECIFIED Status: Resolved - Plan stress test is -ve has fever of 102, is immunosuppressed prelim blood csx2 is -ve, urine is growing gm-ve nathalia >100k organisms recently treated with 2 diff antibiotics for uti will check bladder residual post void await opinion pt is compliant with HIV meds per prior records hemostable on vanc and zosyn continue asp, coreg, cozaar, risperdal hs, pamelor tialondraay and descovy for HIV
[2019-04-25] MEDS: Piperacillin/Tazobactam 3.375 GM in Sodium Chloride 0.9% 100 ML IVPB SCH ×2 (14:53→22:43)
--- NOTE | 2019-04-25 17:40 | CON ---
DATE OF CONSULTATION: 04/25/2019 HISTORY OF PRESENT ILLNESS: A 59-year-old patient whom I follow in the clinic for her HIV infection. She has a history of cardiomyopathy with prior AICD insertion. The cardiomyopathy has been determined to be nonischemic cardiomyopathy after catheterization. She also has longstanding HIV infection. Her last CD4 cell count was in the mid 300s, the viral load in the 200 range, on anti-retroviral therapy. She also has a neurogenic bladder. It is not clear what the etiology of that is , but she does in and out catheterization, has been evaluated by Dr. Travis and currently under Dr. Ramirez's care. At this time, she presented to the emergency room after development of what she describes as heartburn after dinner on . She had a stress test which was negative and developed fever and has been started on antimicrobial therapy with piperacillin-tazobactam and vancomycin. Currently, she is feeling well. She denies any headaches, visual symptoms, sore throat, odynophagia, or dysphagia. No cough or sputum production. No chest pain recurrence. No dyspnea. No abdominal pain or diarrhea. She has not been self-catheterizing anymore since admission. In fact after admission on , the next catheterization was done about 24 hours later because she did not have any catheters, which she usually uses the one she has at home and catheterize herself 4 times daily. So, she developed urinary retention, and I think this is the reason for the fever. PAST MEDICAL HISTORY: Nonischemic cardiomyopathy, longstanding HIV infection, psychosis, and hypertension. PAST SURGICAL HISTORY: AICD insertion. FAMILY HISTORY: Coronary artery disease and leukemia. SOCIAL HISTORY: Never smoker. No alcoholic beverage use. Three children. . Lives in the area. CURRENT MEDICATIONS: She is on, 1. Ecotrin. 2. Coreg. 3. Lovenox. 4. Pepcid. 5. Folvite. 6. Cozaar. 7. Pamelor. 8. Tivicay. 9. Descovy 10. Bactrim. 11. Vancomycin. 12. Zosyn. PHYSICAL EXAMINATION: VITAL SIGNS: T-max 102.2 earlier today at 3 in the morning and now she is 98.6, blood pressure 112/56, pulse 80, respirations 20, and O2 saturation 97. SKIN: Normal. Peripheral IV access. She is voiding spontaneously plus with in and out catheterizations, but I think she only had one thus far at 6 in the morning apparently. HEENT: Ocular movements conjugate. Oral cavity normal. She has a lot of missing teeth, remainder of ones with some decay. NECK: Supple. No lymphadenopathy. LUNGS: Symmetric. Clear breath sounds. HEART: S1, S2. Regular rate. No S3 or S4. AICD pocket site appears normal. ABDOMEN: Soft, not distended or tender. No ascites. No bladder distention. No joint inflammatory activity. EXTREMITIES: Moves extremities equally. NEUROLOGIC: Cognitive function appears to be intact. LABORATORY DATA: Sodium 128, creatinine is 1.08, actually one up to 1.28 since admission. Sodium 133 now. White cell count was 3.6 and 4.9 now, hemoglobin 12.6, and platelets 231 with 84% neutrophils. Urinalysis 11 to 20 wbc's and cultures with a gram-negative nathalia likely is going to be the Escherichia coli isolated from April 15, 2019, which was resistant to ampicillin, Cipro, levofloxacin, and Bactrim. ASSESSMENT: 1. Nonischemic cardiomyopathy, longstanding human immunodeficiency virus infection, well controlled on antiretroviral therapy with a CD4 cell count mid 300s. 2. Neurogenic bladder with in and out catheterization in home setting. 3. Febrile illness, most likely due to cessation of in and out catheterization, development of urinary retention after admission. DISCUSSION: We will resume in and out catheterization 4 times daily and continue her anti-retroviral therapy. Await for the final identification susceptibility profile of the organism. Hopefully, discharge home tomorrow on oral antimicrobials for a few days. Job ID: [id number] [facility]
[2019-04-25] MEDS ORDERED: Sodium Chloride 0.9% 100 ML ONE (22:35)
[2019-04-25] MEDS: risperiDONE 1 MG TAB PO SCH (22:44)
[2019-04-25] MEDS: Nortriptyline HCl 25 MG CAP PO SCH (22:45)
[2019-04-25] MEDS ORDERED: risperiDONE 1 MG TAB ONE (22:50)
[2019-04-26] MEDS: Piperacillin/Tazobactam 3.375 GM in Sodium Chloride 0.9% 100 ML IVPB SCH (05:30)
[2019-04-26] MEDS: Cyanocobalamin (Vitamin B-12) 1,000 MCG TAB PO SCH (09:17)
[2019-04-26] MEDS: Famotidine 20 MG TAB PO SCH (09:17)
[2019-04-26] MEDS: Carvedilol 25 MG TAB PO SCH (09:17)
[2019-04-26] MEDS: Enoxaparin Sodium 40 MG/0.4 ML SYRINGE SC SCH (09:17)
[2019-04-26] MEDS: Aspirin 325 mg Enteric Coated Tablet PO SCH (09:17)
[2019-04-26] MEDS: Folic Acid 1 MG TAB PO SCH (09:18)
[2019-04-26] MEDS: Losartan 25 MG TAB PO SCH (09:18)
[2019-04-26] MEDS: PATIENT'S HOME MEDICATION PO SCH (09:18)
[2019-04-26] MEDS: Dolutegravir Sodium [Tivicay] 50 MG PO SCH (09:19)
[2019-04-26] MEDS: Vancomycin HCl 1.25 GM in Sodium Chloride 0.9% 250 ML 250 ML IVPB SCH (09:20)
--- NOTE | 2019-04-26 11:34 | PDOC.HOSPP ---
- Subjective Encounter Date: 04/26/19 Encounter Time: 09:30 Subjective: had temp of 99 this am, no sob or palp no cough or diarrhea or abd pain is amb in room - Objective Vital Signs & Weight: Vital Signs (12 hours) Temp Pulse Resp BP Pulse Ox 04/26/19 08:08 99.5 F 100 16 105/63 96 04/26/19 04:00 98.8 F 87 16 124/60 96 Weight Weight 189 lb 3.2 oz I&O: 04/25/19 04/26/19 04/27/19 06:59 06:59 06:59 Intake Total 1692 1665 Output Total 1400 2300 Balance 292 -635 Result Diagrams: 04/25/19 03:33 04/25/19 03:32 Hospitalist ROS - Medication Medications: Active Medications Generic Name Dose Route Start Last Admin Trade Name Freq PRN Reason Stop Dose Admin Acetaminophen 650 mg 04/24/19 11:41 04/25/19 03:58 Tylenol PO 650 mg Q4H PRN Administration Headache/Fever/Mild Pain (1-3) Aspirin 325 mg 04/25/19 09:00 04/26/19 09:17 Ecotrin PO 325 mg DAILY OSCAR Administration Carvedilol 25 mg 04/24/19 21:00 04/26/19 09:17 Coreg PO 25 mg BID OSCAR Administration Cyanocobalamin 1,000 mcg 04/25/19 09:00 04/26/19 09:17 Vitamin B-12 PO 1,000 mcg DAILY OSCAR Administration Enoxaparin Sodium 40 mg 04/25/19 09:00 04/26/19 09:17 Lovenox SC 40 mg 0900 OSCAR Administration Famotidine 20 mg 04/24/19 21:00 04/26/19 09:17 Pepcid PO 20 mg BID OSCAR Administration Folic Acid 1 mg 04/25/19 09:00 04/26/19 09:18 Folvite PO 1 mg DAILY OSCAR Administration Piperacillin Sod/Tazobactam 100 mls @ 200 mls/hr 04/25/19 14:00 04/26/19 05: 30 Sod 3.375 gm/ Sodium Chloride IVPB 100 mls Q8HR OSCAR Administration Vancomycin HCl 1.25 gm/ Sodium 250 mls @ 166.667 mls/hr 04/25/19 09:00 09:20 Chloride IVPB 250 mls Q12HR OSCAR Administration Losartan Potassium 50 mg 04/25/19 09:00 04/26/19 09:18 Cozaar PO 50 mg DAILY OSCAR Administration Nortriptyline HCl 25 mg 04/24/19 21:00 04/25/19 22:45 Pamelor PO 25 mg HS OSCAR Administration Dolutegravir Sodium 0 each 04/25/19 09:00 04/26/19 09:19 [Tivicay] 50 Mg PO 1 each DAILY OSCAR Administration Patient Own Medication 0 each 04/25/19 09:00 04/26/19 09:18 Patient's Home Medication PO 1 each DAILY OSCAR Administration Risperidone 2 mg 04/24/19 21:00 04/25/19 22:44 Risperidone PO 2 mg HS OSCAR Administration Sodium Chloride 10 ml 04/25/19 09:00 04/26/19 09:20 Flush - Normal Saline IVF 10 ml Q12HR OSCAR Administration - Exam General Appearance: NAD, awake alert Eye: PERRL, anicteric sclera ENT: no oropharyngeal lesions, moist mucosa Neck: supple, no JVD Heart: RRR, no murmur Respiratory: no wheezes, no rales Gastrointestinal: soft, non-tender, non-distended, normal bowel sounds Extremities: no cyanosis, no edema Neurological: cranial nerve grossly intact, no focal deficits Psychiatric: normal affect, A&O x 3 Hosp A/P (1) UTI (urinary tract infection) Status: Acute Qualifiers: Urinary tract infection type: acute cystitis Hematuria presence: without hematuria Qualified Code(s): N30.00 - Acute cystitis without hematuria (2) Sepsis Code(s): A41.9 - SEPSIS, UNSPECIFIED ORGANISM Status: Acute Qualifiers: Sepsis type: Escherichia coli Sepsis acute organ dysfunction status: without acute organ dysfunction Qualified Code(s): A41.51 - Sepsis due to Escherichia coli [E. coli] (3) Cardiomyopathy Code(s): I42.9 - CARDIOMYOPATHY, UNSPECIFIED Status: Chronic Qualifiers: Cardiomyopathy type: unspecified Qualified Code(s): I42.9 - Cardiomyopathy , unspecified (4) HIV (human immunodeficiency virus infection) Status: Chronic Qualifiers: HIV symptom status: asymptomatic Qualified Code(s): Z21 - Asymptomatic human immunodeficiency virus [HIV] infection status (5) Hypertension Code(s): I10 - ESSENTIAL (PRIMARY) HYPERTENSION Status: Chronic Qualifiers: Hypertension type: essential hypertension Qualified Code(s): I10 - Essential (primary) hypertension (6) Chest pain Code(s): R07.9 - CHEST PAIN, UNSPECIFIED Status: Resolved - Plan stress test is -ve has fever of 99 this am prelim blood csx2 is -ve, urine is grew e.coli resistant to quinolones and sulfa recently treated with 2 diff antibiotics for uti is doing self cath x4/day on macrobid based on cultures pt is compliant with HIV meds per prior records hemostable continue asp, coreg, cozaar, risperdal hs, pamelor tivicay and descovy for HIV
[2019-04-26] MEDS ORDERED: Nitrofurantoin Monohyd/M-Cryst 100 MG CAP PO SCH (12:00)
[2019-04-26] MEDS ORDERED: cefTRIAXone\\ROCEPHIN 1 GM in Sodium Chloride 0.9% 100 ML IVPB SCH (13:00)
[2019-04-26 16:19] VITALS: BP 136/62; TEMP 99
--- NOTE | 2019-04-28 07:17 | DIS ---
DATE OF ADMISSION: 04/25/2019 DATE OF DISCHARGE: 04/26/2019 DISCHARGE DISPOSITION: Home. PRIMARY DISCHARGE DIAGNOSIS: Urinary tract infection with sepsis likely due to urinary retention, resolved. SECONDARY DISCHARGE DIAGNOSES: 1. Cardiomyopathy. 2. HIV. 3. Hypertension. 4. Chest pain, completely resolved. PROCEDURES DONE DURING HOSPITALIZATION: Chest x-ray done showed no acute intrathoracic abnormality. Nuclear stress test done showed normal myocardial perfusion scan with ejection fraction of 62% and normal wall motion. Ultrasound venous Doppler of lower extremities done showed no evidence of DVT. Blood cultures x2, no growth. Urine culture grew E. coli resistant to quinolones and sulfa. It is also resistant to ampicillin, but sensitive to cephalosporins. H and H 12 and 37, platelet count 231, white count of 4.9. Total cholesterol 176, triglycerides 53, LDL 102, HDL 63. Vitamin B12 of 395, folic acid 10.3, BUN 10, creatinine 1.28. Troponin x3 negative. DISCHARGE MEDICATION: 1. Vantin 200 mg twice daily for 10 days. 2. Vitamin B12 1000 mcg p.o. daily. 3. Folic acid 1 mg p.o. daily. 4. Risperdal 2 mg p.o. at bedtime. 5. Nortriptyline 25 mg p.o. at bedtime. 6. Losartan 50 mg p.o. daily. 7. Descovy 200/25 mg one one tablet daily. 8. Tivicay 50 mg daily. 9. Coreg 25 mg twice daily. 10. Aspirin 81 mg daily. ALLERGIES: NO KNOWN DRUG ALLERGIES. INPATIENT CONSULT: Dr. Ritchie for Infectious Disease. DISCHARGE PLAN: The patient to follow up with her primary care physician at [facility] in 1 week. She also needs to see Dr. Ritchie in 10 days. BRIEF COURSE DURING HOSPITALIZATION: The patient initially came to ER with complaints of not feeling well, generalized weakness and chest pain. She was initially placed under observation. She has had three sets of troponin done which was negative and a nuclear stress test done was negative. The patient received flu shot and pneumococcal shot during her stay here. She also has a history of urinary retention with incontinence and does straight catheterization four times a day. The patient apparently did not do this during her stay here and developed retention with fever of 102. As the patient was immunocompromised with HIV status, she was switched over to inpatient status and was closely monitored. Blood cultures were negative. Urine culture grew E. coli sensitive to cephalosporins. She was evaluated by Dr. Ritchie as well. The patient is very compliant with her HIV medications. She has remained hemodynamically stable. Her T-max remained around 99 degrees in the last 24 hours. She is advised to come to the nearest emergency room if she were to develop fever. In the last 36 hours, the patient has been doing straight catheterization four times daily as previously. She is hemodynamically stable except for temperature and is ambulating and eating well prior to discharge. Please note I have seen and examined the patient on the day of discharge. Job ID: [id number]
== END 2019-04-26 17:47 | disposition home or self-care (01) | DRG 872 ==
LOC: ERS 21:29 → 2SW 04-24 02:41 → OBSVTOIN 04-25 07:24 → 2NO 04-25 22:17
PROVIDERS: ADMIT Internal Medicine; ATTEND Internal Medicine
DX: A41.51 Sepsis due to Escherichia coli [E. coli] (principal); I42.9 Cardiomyopathy, unspecified; N30.00 Acute cystitis without hematuria; I10 Essential (primary) hypertension; F31.9 Bipolar disorder, unspecified; F20.9 Schizophrenia, unspecified; Z21 Asymptomatic human immunodeficiency virus [HIV] infection status; R07.89 Other chest pain; Z09 Encounter for follow-up examination after completed treatment for conditions other than malignant neoplasm; Z95.810 Presence of automatic (implantable) cardiac defibrillator; Z79.82 Long term (current) use of aspirin; Z79.899 Other long term (current) drug therapy
CPT/HCPCS: 36415; 71046; 78452; 80048; 80053; 80061; 81003; 81015; 82550; 82607; 82746; 84484; 85025; 87040; 87077; 87086; 87186; 90471; 90670; 90686; 93005; 93017; 93970; 94760; A9500; G0008; G0009; J0153; J0696; J1650; J2543; J3370; J3490; J7050

== ENCOUNTER 2019-05-29 01:21 | Emergency (ER) | payer MEDICARE, MEDICAID ==
--- NOTE | 2019-05-29 08:31 | RAD ---
TWO VIEWS OF THE ABDOMEN AND UPRIGHT VIEW OF THE CHEST: COMPARISON: 10/17/2009. HISTORY: Abdominal pain, hypertension, and HIV. FINDINGS: Two views of the abdomen and upright view of the chest shows a nonspecific, nonobstructed bowel gas p attern. No free air or air fluid levels are seen on upright examination. The heart is normal in size. There is a pacemaker with its leads in the right atrium, right ventricl e, and coronary sinus. No consolidation, mass, or pleural effusion are seen. IMPRESSION: Unremarkable exam. POS: CET
== END 2019-05-29 02:40 | disposition home or self-care (01) ==
LOC: ERS 01:21
DX: K59.00 Constipation, unspecified (principal); F32.9 Major depressive disorder, single episode, unspecified; B20 Human immunodeficiency virus [HIV] disease; I11.0 Hypertensive heart disease with heart failure; I50.9 Heart failure, unspecified
CPT/HCPCS: 74022

== ENCOUNTER 2019-07-11 12:55 | Inpatient (IN) | payer MEDICARE, MEDICAID ==
--- NOTE | 2019-07-11 13:15 | RAD ---
EXAM: Chest 2 views: HISTORY: Cough for one day COMPARISON: 04/23/2019 FINDINGS: There is a normal-sized cardiomediastinal silhouette. The pacemaker is unchanged in position. There is no evidence of consolidation, mass, or pleural effusion. The bones are unremarkable. IMPRESSION: No evidence of acute cardiopulmonary disease
[2019-07-11] MEDS ORDERED: Acetaminophen 500 MG TAB ONE (13:38)
[2019-07-11 13:50] LABS: #Lymphocytes 2.2 thou/uL (1.20-3.40); #Monocytes 0.9 thou/uL (0.11-0.59); #Neutrophils 7.8 thou/uL (1.40-6.50); %Basophils 0.2 % (0.0-1.0); %Eosinophils 0.2 % (0.0-10.0); %Lymphocytes 20.4 % (21.0-51.0); %Monocytes 7.9 % (0.0-10.0); %Neutrophils 71.3 % (42.0-75.0); Hemoglobin 13.3 g/dL (12.0-16.0); Mean Corpuscular HGB CONC 34.3 g/dL (32.0-36.0); Mean Corpuscular Hemoglobin 34.9 pg (27.0-31.0); Mean Platelet Volume 7.4 fL (7.4-10.4); Platelet Count 228 thou/uL (130-400)
[2019-07-11 14:09] LABS: ALT (SGPT) 12 U/L (8-55); AST (SGOT) 14 U/L (5-34); Alkaline Phosphatase 87 U/L (40-110); Anion Gap 13 mmol/L (10-20); BUN (Urea Nitrogen) 8 mg/dL (9.8-20.1); Calc. Creatinine Clearance 0 mL/min (70-130); Carbon Dioxide 23 mmol/L (23-31); Chloride 97 mmol/L (98-107); Estimated GFR-MDRD 57; Globulin 3.6 g/dL (2.4-3.5); Glucose 123 mg/dL (80-115); Potassium 3.6 mmol/L (3.5-5.1); Protein, Total 7.6 g/dL (6.0-8.3); Sodium 129 mmol/L (136-145)
[2019-07-11] MEDS ORDERED: guaiFENesin 200 MG TAB PO PRN (16:50)
[2019-07-11] MEDS ORDERED: Acetaminophen 325 MG TAB PO PRN (16:50)
[2019-07-11] MEDS ORDERED: Ondansetron PF 4 MG/2 ML Vial IVP PRN (16:50)
--- NOTE | 2019-07-11 16:58 | PDOC.HHP ---
Hospitalist HPI - History of Present Illness Cough, congestion past week History of Present Illness: Ms. Cabrales is a 59 y/o lady with PMH of HIV on anti-viral therapy, history of bipolar disorder, who presents to the ED with cough, congestion, and decreased oral intake for the past week. She states that approximately one week ago she started developing symptoms of cough and congestion. States plegm has been clear /white color. She states her son in the house was sick. Reportedly she felt feverish at home but did not record her temperature. Additionally, had decreased oral intake the past two days and felt dizzy today so decided to come the emergency room. Denies sob, cp, palpitations, diarrhea, nausea, vomiting, or other associated symptoms. Hospitalist ROS - Review of Systems Constitutional: denies: fever, chills, sweats, weakness, malaise, other Eyes: denies: pain, vision change, conjunctivae inflammation, eyelid inflammation, redness, other ENT: denies: ear pain, ear discharge, nose pain, nose discharge, nose congestion , mouth pain, mouth swelling, throat pain, throat swelling, other Respiratory: reports: cough Cardiovascular: denies: chest pain, palpitations, orthopnea, paroxysmal noc. dyspnea, edema, light headedness, other Gastrointestinal: denies: nausea, vomiting, abdominal pain, diarrhea, constipation, melena, hematochezia, other Musculoskeletal: denies: neck pain, shoulder pain, arm pain, back pain, hand pain, leg pain, foot pain, other Skin: denies: rash, lesions, kehinde, bruising, other Neurological: denies: weakness, numbness, incoordination, change in speech, confusion, seizures, other - Medication Medications: Medication Instructions Recorded Confirmed Type Aspirin [Aspirin EC] 81 mg PO DAILY 06/24/14 04/24/19 History Nortriptyline HCl 25 mg PO HS 06/24/14 04/24/19 History risperiDONE [RisperDAL] 2 mg PO HS 06/24/14 04/24/19 History Carvedilol 25 mg PO BID 01/23/18 04/24/19 History Dolutegravir Sodium [Tivicay] 50 mg PO DAILY 01/23/18 04/24/19 History Emtricitabine/Tenofov Alafenam 1 tab PO DAILY 01/23/18 04/24/19 History [Descovy 200-25 mg Tablet] Losartan Potassium 50 mg PO DAILY 01/23/18 04/24/19 History Cefpodoxime Proxetil [Vantin] 200 mg PO BID #20 tablet 04/26/19 Rx Cyanocobalamin (Vitamin B-12) 1,000 mcg PO DAILY #30 tab 04/26/19 Rx [Vitamin B-12] Folic Acid [Folvite] 1 mg PO DAILY #30 tab 04/26/19 Rx Hospitalist History - Past Medical History Source: patient, RN notes reviewed Cardiac: reports: HTN CHIEF ACCOUNTANT: reports: no pertinent history Gastrointestinal: reports: no pertinent history Heme/Onc: reports: no pertinent history Hepatobiliary: reports: no pertinent history Psych: reports: Bipolar Infectious Disease: reports: HIV Endocrine: reports: no pertinent history - Past Surgical History Past Surgical History: reports: no pertinent history - Family History Family History: reports: no pertinent history - Social History Smoking Status: Never smoker Alcohol: reports: None Drugs: reports: none Living Situation: With Family Activity level: independent ambulation - Exam General Appearance: NAD, awake alert Eye: PERRL, anicteric sclera ENT: normocephalic atraumatic, no oropharyngeal lesions, moist mucosa Neck: supple, symmetric, no JVD, no thyromegaly, no lymphadenopathy, no carotid bruit Heart: RRR, no murmur, no gallops, no rubs, normal peripheral pulses Respiratory: CTAB, no wheezes, no rales, no ronchi, normal chest expansion, no tachypnea, normal percussion Gastrointestinal: soft, non-tender, non-distended, normal bowel sounds, no palpable masses, no hepatomegaly, no splenomegaly, no bruit Extremities: no cyanosis, no clubbing, no edema Skin: normal turgor, no lesions, no rashes Neurological: cranial nerve grossly intact, normal sensation to touch, no weakness, no focal deficits, no new deficit Musculoskeletal: normal tone, normal strength, no muscle wasting Psychiatric: normal affect, normal behavior, A&O x 3 Hospitalist Results - Labs Result Diagrams: 07/11/19 13:36 07/11/19 13:36 Lab results: WBC 11.0 thou/uL (4.8-10.8) H 07/11/19 13:36 Hgb 13.3 g/dL (12.0-16.0) 07/11/19 13:36 Hct 38.7 % (36.0-47.0) 07/11/19 13:36 MCV 102.0 fL (78.0-98.0) H 07/11/19 13:36 Plt Count 228 thou/uL (130-400) 07/11/19 13:36 Neutrophils % 71.3 % (42.0-75.0) 07/11/19 13:36 Sodium 129 mmol/L (136-145) L 07/11/19 13:36 Potassium 3.6 mmol/L (3.5-5.1) 07/11/19 13:36 Chloride 97 mmol/L (98-107) L 07/11/19 13:36 Carbon Dioxide 23 mmol/L (23-31) 07/11/19 13:36 BUN 8 mg/dL (9.8-20.1) L 07/11/19 13:36 Creatinine 1.17 mg/dL (0.6-1.1) H 07/11/19 13:36 Glucose 123 mg/dL (80-115) H 07/11/19 13:36 Lactic Acid 1.2 mmol/L (0.5-2.2) 07/11/19 13:36 Calcium 9.0 mg/dL (7.8-10.44) 07/11/19 13:36 Total Bilirubin 1.0 mg/dL (0.2-1.2) 07/11/19 13:36 AST 14 U/L (5-34) 07/11/19 13:36 ALT 12 U/L (8-55) 07/11/19 13:36 Alkaline Phosphatase 87 U/L (40-110) 07/11/19 13:36 Serum Total Protein 7.6 g/dL (6.0-8.3) 07/11/19 13:36 Albumin 4.0 g/dL (3.4-4.8) 07/11/19 13:36 - Radiology Interpretation Chest x-ray Status: report reviewed by mo Hospitalist H&P A/P - Problem (1) Hyponatremia Code(s): E87.1 - HYPO-OSMOLALITY AND HYPONATREMIA Status: Acute (2) Dehydration Code(s): E86.0 - DEHYDRATION Status: Acute (3) Upper respiratory infection Code(s): J06.9 - ACUTE UPPER RESPIRATORY INFECTION, UNSPECIFIED Status: Acute (4) History of HIV infection Code(s): B20 - HUMAN IMMUNODEFICIENCY VIRUS [HIV] DISEASE Status: Chronic (5) History of bipolar disorder Code(s): Z86.59 - PERSONAL HISTORY OF OTHER MENTAL AND BEHAVIORAL DISORDERS Status: Chronic - Plan Plan: Admit for medical observation for tx of dehydration, URI sxs NS @ 75ml/hr, bolus given in the ED Monitor Cr and Na tomorrow Flu test negative, supportive care for URI like sxs at this time HIV reportedly on anti-viral therpay, CD4 count apparently > 384 in previous labs Medication reviewed and to be reonciled upon admission, resume HIV medication and bipolar medication once reconciled DVT Prophylaxis: SCDs Code Status: Full Disposition: Admit for supportive care. Likely d/c in the AM once dehydration corrected.
[2019-07-11 18:20] VITALS: BMI 31.1
[2019-07-11] MEDS: Sodium Chloride 0.9% 1,000 ML IV SCH (18:40)
[2019-07-12 05:36] LABS: Anion Gap 13 mmol/L (10-20); BUN (Urea Nitrogen) 7 mg/dL (9.8-20.1); Calc. Creatinine Clearance 86 mL/min (70-130); Calcium 8.7 mg/dL (7.8-10.44); Carbon Dioxide 24 mmol/L (23-31); Chloride 105 mmol/L (98-107); Estimated GFR-MDRD 75; Glucose 99 mg/dL (80-115); Potassium 3.6 mmol/L (3.5-5.1); Sodium 138 mmol/L (136-145)
[2019-07-12 08:29] VITALS: TEMP 98.4
[2019-07-12] MEDS: Sodium Chloride 0.9% 1,000 ML IV SCH (11:45)
[2019-07-12 12:14] VITALS: BP 124/64
--- NOTE | 2019-07-13 05:33 | DIS ---
DATE OF ADMISSION: 07/11/2019 DATE OF DISCHARGE: 07/12/2019 DISCHARGE DIAGNOSES: 1. Acute dehydration. 2. Hyponatremia. 3. Upper respiratory tract infection. 4. History of human immunodeficiency virus infection. 5. History of bipolar disorder. 6. Acute on chronic kidney disease, stage 2. HISTORY OF PRESENT ILLNESS: This patient is a 59-year-old female with a history of HIV infection and bipolar disorder, who presented to the emergency department reporting significant cough and sputum production for several days prior. She admitted that she had not been eating and drinking well for several days. She was found to have some hyponatremia with sodium of 129, acute renal insufficiency with GFR at 57, which was still in keeping with her chronic kidney disease stage 2. She had a negative chest x-ray with no evidence of pneumonia and flu screen was negative. HOSPITAL COURSE: The patient was admitted to the hospital, started on some IV fluids and maintained on her usual home regimen. By the following morning, her labs had improved with sodium up to 138, and her GFR was up to 75. She felt quite well and was eager to discharge to home. PHYSICAL EXAMINATION: VITAL SIGNS: Temperature was 98.4, pulse 80, respirations 16, O2 saturation 96% on room air, BP is 124/64. GENERAL APPEARANCE: Age-appropriate female, in no distress. HEENT: Very poor dentition. She has a small ecchymoses on the left lower eyelid (patient reports that she was out drinking and missed a step and fell that is the cause of the injury, but that was days ago and has not bothered her since). HEART: Regular rate and rhythm. LUNGS: Clear to auscultation. ABDOMEN: Benign. EXTREMITIES: No edema. DISPOSITION: The patient is discharged to home. DISCHARGE INSTRUCTIONS: She is to have a regular diet and activity level. MEDICATIONS: She will be on; 1. Nortriptyline 25 mg at bedtime. 2. Aspirin 81 mg daily. 3. Carvedilol 25 mg b.i.d. 4. Descovy 1 p.o. daily. 5. Tivicay 50 mg daily. 6. Losartan 50 mg daily. 7. Quetiapine 50 mg at bedtime. 8. Will be prescribed Augmentin 875 one p.o. b.i.d. for her upper respiratory tract infection. She is to establish with a PCP and follow up within the next 10 days and she can return to the hospital should she have any problems prior to that time. Job ID: [id number]
--- NOTE | 2019-07-14 10:17 | PQF ---
MARTINA BLAKE DAVID R MD [id number] [facility]-Replaced by [facility] [id number] CLINICAL DOCUMENTATION CLARIFICATION FORM: POST DISCHARGE Addendum to original discharge summary date: ____ Late entry note date: __ DATE: ATTN: Please exercise your independent, professional judgment in responding to the clarification form. Clinical indicators are provided on the bottom of this form for your review Please check appropriate box(s): [ ] AIDS [x ] Asymptomatic HIV infection status [ ] Other diagnosis [ ] Unable to determine In addition, please specify: Present on Admission (POA): [ x ] Yes [ ] No [ ] Unable to determine For continuity of documentation, please document condition throughout progress notes and discharge summary. Thank You. CLINICAL INDICATORS - SIGNS / SYMPTOMS / LABS HIV reportedly on anti-viral therapy-Documented in H&P on 07/11 by Merlin Renteria CD4 count apparently > 384 in previous labs-Documented in H&P on 07/11 by Merlin Renteria Upper respiratory infection-Documented in H&P on 07/11 by Merlin Renteria Dehydration-Documented in H&P on 07/11 by Merlin Renteria RISK FACTORS Dehydration-Documented in H&P on 07/11 by Merlin Renteria Upper respiratory infection-Documented in H&P on 07/11 by Merlin Renteria TREATMENTS: Medication reviewed and to be reonciled upon admission, resume HIV medication- Documented in H&P on 07/11 by Merlin Renteria
== END 2019-07-12 15:40 | disposition home or self-care (01) | DRG 641 ==
LOC: ERS 12:55 → 2SW 17:09
PROVIDERS: ADMIT Internal Medicine; ATTEND Emergency Medicine
DX: E87.1 Hypo-osmolality and hyponatremia (principal); E86.0 Dehydration; J06.9 Acute upper respiratory infection, unspecified; F31.9 Bipolar disorder, unspecified; N18.2 Chronic kidney disease, stage 2 (mild); N28.9 Disorder of kidney and ureter, unspecified; Z21 Asymptomatic human immunodeficiency virus [HIV] infection status
CPT/HCPCS: 36415; 71046; 80048; 80053; 83605; 83735; 85025; 87804; 96360

== ENCOUNTER 2019-09-29 12:18 | Outpatient (CLI) | payer MEDICARE, MEDICAID ==
--- NOTE | 2019-09-29 14:40 | ULT ---
Exam: Bilateral renal ultrasound HISTORY: Incomplete voiding. COMPARISON: None FINDINGS: Right kidney: No cortical masses. There is a prominent pelvis on pre and post void images Right kidney measurements: 5.2 x 5.1 x 10.1 cm. Left kidney: No cortical masses. There is thinning of the renal cortex with increased echogenicity donovan ggesting scar formation in the mid to lower left renal parenchyma. No hydronephrosis. Left kidney measurements 10.0 x 5.7 x 4.8 cm. Urinary bladder: Normal mucosa. Prevoid volume 436 mL. Post void volume 217 mL. IMPRESSION: 1. Probable scarring left renal cortex. 2. Prominent pre and post void right renal pelvis without evidence of calyceal dilatation. 3. Significant urinary retention
== END 2019-09-29 12:19 | disposition home or self-care (01) ==
LOC: BICULT 12:18
PROVIDERS: ATTEND Urology
DX: R33.9 Retention of urine, unspecified (principal); R39.14 Feeling of incomplete bladder emptying
CPT/HCPCS: 36415; 76770; 80048

== ENCOUNTER 2020-09-06 09:32 | Outpatient (CLI) | payer MEDICARE, MEDICAID ==
--- NOTE | 2020-09-06 10:39 | ULT ---
Exam: Bilateral renal ultrasound HISTORY: Urinary retention COMPARISON: 09/29/2019 FINDINGS: Right kidney: Normal cortical echotexture. No hydronephrosis. Right kidney measurements: 9.9 x 4.7 x 4.7 cm. Left kidney: Normal cortical echotexture. There does appear to be scarring in the left renal cortex. No hydronephrosis Left kidney measurements 4.4 x 10.0 x 4.6 cm. Urinary bladder: Normal mucosa. Prevoid bladder volume is 208 mL. Post void bladder volume is 118 mL. IMPRESSION: No hydronephrosis.
== END 2020-09-06 09:33 | disposition home or self-care (01) ==
LOC: BICULT 09:32
PROVIDERS: ATTEND Urology
DX: R33.9 Retention of urine, unspecified (principal); R39.14 Feeling of incomplete bladder emptying
CPT/HCPCS: 76770

== ENCOUNTER 2020-11-17 09:01 | Emergency (ER) | payer MEDICARE, MEDICAID | END 2020-11-17 09:35 | LOC: ERS 09:01 | DX: F10.129 Alcohol abuse with intoxication, unspecified (principal); E78.5 Hyperlipidemia, unspecified; I10 Essential (primary) hypertension; B20 Human immunodeficiency virus [HIV] disease | CPT/HCPCS: 99283 ==

== ENCOUNTER 2021-01-10 19:25 | Emergency (ER) | payer MEDICARE, MEDICAID ==
[2021-01-10 21:22] LABS: Bacteria/HPF 4+ HPF (None Seen); Bilirubin Negative (Negative); Blood, Urine Negative (Negative); Clarity Clear (Clear); Glucose, Urine (Dipstick) Normal (Negative); Ketone, Urine Negative (Negative); Leukocyte 500 Leu/uL (Negative); Nitrite 2+ (Negative); Protein, Urine (Dipstick) Negative (Neg-Trace); RBC/HPF 0-3 HPF (0-3); Specific Gravity, Urine 1.007 (1.002-1.036); Squamous Epithelial None Seen HPF (0-3); Urobilinogen Normal mg/dL (Less than 2); WBC/HPF 21-50 HPF (0-3); pH, Urine 6.5 (5.0-9.0)
[2021-01-10 23:37] LABS: Anion Gap 17 mmol/L (10-20); BUN (Urea Nitrogen) 10 mg/dL (9.8-20.1); Calc. Creatinine Clearance 0 mL/min (70-130); Calcium 9.2 mg/dL (7.8-10.44); Carbon Dioxide 17 mmol/L (23-31); Chloride 94 mmol/L (98-107); Glucose 115 mg/dL (80-115); Potassium 3.6 mmol/L (3.5-5.1); Sodium 124 mmol/L (136-145)
== END 2021-01-10 23:49 | disposition home or self-care (01) ==
LOC: ERS 19:25
DX: N39.0 Urinary tract infection, site not specified (principal); R33.9 Retention of urine, unspecified; E87.1 Hypo-osmolality and hyponatremia; E78.00 Pure hypercholesterolemia, unspecified; E78.5 Hyperlipidemia, unspecified; I10 Essential (primary) hypertension; Z21 Asymptomatic human immunodeficiency virus [HIV] infection status
CPT/HCPCS: 36415; 80048; 81003; 81015; 99283

== ENCOUNTER 2021-08-26 18:39 | Inpatient (IN) | payer MEDICARE, MEDICAID ==
[2021-08-26 19:45] LABS: Bacteria/HPF 4+ HPF (None Seen); Bilirubin Negative (Negative); Blood, Urine 2+ (Negative); Clarity Turbid (Clear); Glucose, Urine (Dipstick) Normal (Negative); Ketone, Urine Negative (Negative); Leukocyte 500 Leu/uL (Negative); Nitrite 2+ (Negative); Protein, Urine (Dipstick) 20 mg/dL (Neg-Trace); RBC/HPF 0-3 HPF (0-3); Specific Gravity, Urine 1.014 (1.002-1.036); Squamous Epithelial 0-3 HPF (0-3); Urobilinogen Normal mg/dL (Less than 2); WBC/HPF Greater than 50 HPF (0-3)
[2021-08-26] MEDS ORDERED: cefTRIAXone\\ROCEPHIN 2 GM VIAL ONE (19:53)
[2021-08-26 19:59] LABS: Hemoglobin 12.4 g/dL (12.0-16.0); Mean Corpuscular HGB CONC 32.9 g/dL (32.0-36.0); Mean Corpuscular Hemoglobin 35.2 pg (27.0-31.0); Mean Platelet Volume 7.6 fL (7.4-10.4); Platelet Count 186 thou/uL (130-400); RBC Distribution Width 11.7 % (11.5-14.5); Red Blood Cell (RBC) Count 3.52 mill/uL (4.20-5.40); White Blood Cell (WBC) Count 8.2 thou/uL (4.8-10.8)
[2021-08-26 20:06] LABS: ALT (SGPT) 25 U/L (8-55); AST (SGOT) 82 U/L (5-34); Albumin 3.9 g/dL (3.4-4.8); Alkaline Phosphatase 82 U/L (40-110); Anion Gap 13 mmol/L (10-20); BUN (Urea Nitrogen) 53 mg/dL (9.8-20.1); Bilirubin, Total 1.9 mg/dL (0.2-1.2); Calc. Creatinine Clearance 0 mL/min (70-130); Calcium 8.7 mg/dL (7.8-10.44); Carbon Dioxide 21 mmol/L (23-31); Chloride 100 mmol/L (98-107); Globulin 3.3 g/dL (2.4-3.5); Glucose 103 mg/dL (80-115); Potassium 3.7 mmol/L (3.5-5.1); Protein, Total 7.2 g/dL (5.8-8.1); Sodium 130 mmol/L (136-145)
[2021-08-26 20:47] LABS: #Lymphocytes 1.3 thou/uL (1.20-3.40); #Monocytes 0.8 thou/uL (0.11-0.59); #Neutrophils 6.1 thou/uL (1.40-6.50); %Basophils 0.1 % (0.0-1.0); %Eosinophils 0.4 % (0.0-10.0); %Lymphocytes 16.3 % (21.0-51.0); %Neutrophils 74.2 % (42.0-75.0); MDiff Complete? YES; Macrocytosis SLIGHT = 6-15 cells (100X) (0-5/hpf)
[2021-08-26] MEDS ORDERED: Vancomycin HCl 1.5 GM in Sodium Chloride 0.9% 250 ML 300 ML IVPB SCH (21:00)
[2021-08-26] MEDS ORDERED: Vancomycin 1.5 GRAM/300 ML BAG 1.5 GM in Premix Bag 1 BAG IVPB SCH (21:00)
[2021-08-26 21:46] LABS: Actual Bicarbonate (HCO3v) 22 mEq/L (22-28); Analyzer IN Cardio ER; Base Excess -3.9 mEq/L (-2.0 to +3.0); Calcium, Ionized (venous) 1.03 mmol/L (1.16-1.32); Chloride (VBG) 103 mmol/L (98-106); Potassium (VBG) 3.82 mmol/L (3.70-5.30); Sodium 133.9 mmol/L (133-146); pH (venous) 7.33 (7.32-7.43)
[2021-08-26] MEDS ORDERED: Acetaminophen 325 MG TAB PO PRN (23:40)
[2021-08-26] MEDS ORDERED: Ondansetron PF 4 MG/2 ML Vial IVP PRN (23:40)
[2021-08-26] MEDS ORDERED: Acetaminophen 650 MG Suppository PR PRN (23:40)
[2021-08-26] MEDS ORDERED: Ondansetron ODT 4 MG TAB PO PRN (23:40)
[2021-08-27] MEDS: Sodium Chloride 0.9% 1,000 ML IV SCH ×3 (04:00→20:15)
[2021-08-27 04:27] VITALS: BMI 32.1
[2021-08-27] MEDS ORDERED: GUAIFENESIN SF SOLN 200 MG/10 ML UDCUP PO PRN (05:49)
[2021-08-27] MEDS ORDERED: Zolpidem Tartrate 5 MG TAB PO PRN (05:49)
[2021-08-27] MEDS ORDERED: Hydrocerin (Eucerin) Cream 120 gm Jar TOP PRN (05:49)
[2021-08-27] MEDS ORDERED: Artificial Tear Sol 15 ML BOT EA EYE PRN (05:49)
[2021-08-27] MEDS ORDERED: Calcium Carbonate 500 MG ChewTAB PO PRN (05:49)
[2021-08-27] MEDS ORDERED: Loratadine 10 MG TAB PO PRN (05:49)
[2021-08-27] MEDS ORDERED: HYDROcodone/Acetaminophen 5/325 mg Tablet PO PRN (05:49)
[2021-08-27] MEDS ORDERED: Loperamide HCl 2 MG CAP PO PRN (05:49)
[2021-08-27] MEDS ORDERED: Senokot S 8.6-50 MG TAB PO PRN (05:49)
[2021-08-27] MEDS ORDERED: hydrALAZINE 20 MG/ML VIAL SLOW IVP PRN (05:49)
[2021-08-27 05:54] LABS: #Eosinphils 0.1 thou/uL (0.0-0.7); #Monocytes 0.7 thou/uL (0.11-0.59); #Neutrophils 3.5 thou/uL (1.40-6.50); %Basophils 0.3 % (0.0-1.0); %Eosinophils 0.8 % (0.0-10.0); %Lymphocytes 32.5 % (21.0-51.0); %Monocytes 11.1 % (0.0-10.0); %Neutrophils 55.2 % (42.0-75.0); Hemoglobin 11.4 g/dL (12.0-16.0); Mean Corpuscular HGB CONC 32.3 g/dL (32.0-36.0); Mean Corpuscular Hemoglobin 34.6 pg (27.0-31.0); Mean Platelet Volume 7.7 fL (7.4-10.4); Platelet Count 155 thou/uL (130-400); RBC Distribution Width 11.7 % (11.5-14.5); White Blood Cell (WBC) Count 6.3 thou/uL (4.8-10.8)
[2021-08-27 06:15] LABS: Anion Gap 7 mmol/L (10-20); BUN (Urea Nitrogen) 34 mg/dL (9.8-20.1); Calc. Creatinine Clearance 60 mL/min (70-130); Calcium 8.3 mg/dL (7.8-10.44); Carbon Dioxide 27 mmol/L (23-31); Chloride 105 mmol/L (98-107); Glucose 103 mg/dL (80-115); Potassium 3.5 mmol/L (3.5-5.1); Sodium 135 mmol/L (136-145)
[2021-08-27] MEDS: Aspirin 81 mg Enteric Coated Tablet PO SCH (07:53)
[2021-08-27] MEDS ORDERED: Vancomycin HCl 1.5 GM in Sodium Chloride 0.9% 250 ML 300 ML IVPB SCH ×2 (08:00→09:00)
[2021-08-27] MEDS ORDERED: Enoxaparin Sodium 30 MG/0.3 ML SYRINGE SC SCH (09:00)
[2021-08-27 14:43] LABS: SARS-CoV-2 PCR by NAA Not Detected (NotDetected)
[2021-08-27] MEDS: cefTRIAXone\\ROCEPHIN 2 GM in Sodium Chloride 0.9% 100 ML IVPB SCH (20:15)
[2021-08-27] MEDS: Nortriptyline HCl 25 MG CAP PO SCH (20:15)
[2021-08-27] MEDS ORDERED: VANCOMYCIN 1.25 GM/250 ML BAG 1.25 GM in Premix Bag 1 BAG IVPB SCH (23:00)
[2021-08-28] MEDS: Sodium Chloride 0.9% 1,000 ML IV SCH (04:00)
[2021-08-28 06:44] LABS: Hemoglobin 10.6 g/dL (12.0-16.0); Mean Corpuscular HGB CONC 31.2 g/dL (32.0-36.0); Mean Corpuscular Hemoglobin 34.8 pg (27.0-31.0); Mean Platelet Volume 7.8 fL (7.4-10.4); Platelet Count 142 thou/uL (130-400); RBC Distribution Width 11.6 % (11.5-14.5); Red Blood Cell (RBC) Count 3.04 mill/uL (4.20-5.40); White Blood Cell (WBC) Count 5.1 thou/uL (4.8-10.8)
[2021-08-28 07:00] LABS: Anion Gap 12 mmol/L (10-20); BUN (Urea Nitrogen) 13 mg/dL (9.8-20.1); Calc. Creatinine Clearance 96 mL/min (70-130); Carbon Dioxide 19 mmol/L (23-31); Chloride 110 mmol/L (98-107); Glucose 89 mg/dL (80-115); Potassium 3.7 mmol/L (3.5-5.1); Sodium 137 mmol/L (136-145)
[2021-08-28 08:01] LABS: MDiff Complete? YES
[2021-08-28] MEDS: EMTRICITABINE PO SCH ×2 (08:01→09:15)
[2021-08-28] MEDS: TENOFOV ALAFENAM PO SCH ×2 (08:01→09:15)
[2021-08-28 08:02] LABS: Band 1 % (5-11); Lymphocytes 45 % (21-51); Macrocytosis SLIGHT = 6-15 cells (100X) (0-5/hpf); Monocytes 7 % (0-10); Neutrophil 47 % (42-75); Platelet Morphology Comment Appears Adequate; Polychromasia SLIGHT = 2-3 cells (100X) (0-2/hpf)
[2021-08-28] MEDS: Enoxaparin Sodium 40 MG/0.4 ML SYRINGE SC SCH (08:02)
[2021-08-28] MEDS: Aspirin 81 mg Enteric Coated Tablet PO SCH (08:02)
[2021-08-28] MEDS: Nortriptyline HCl 25 MG CAP PO SCH (21:21)
[2021-08-28] MEDS: cefTRIAXone\\ROCEPHIN 2 GM in Sodium Chloride 0.9% 100 ML IVPB SCH (21:21)
[2021-08-29] MEDS: TENOFOV ALAFENAM PO SCH (08:10)
[2021-08-29] MEDS: EMTRICITABINE PO SCH (08:10)
[2021-08-29] MEDS: Aspirin 81 mg Enteric Coated Tablet PO SCH (08:10)
[2021-08-29] MEDS: Enoxaparin Sodium 40 MG/0.4 ML SYRINGE SC SCH (08:10)
[2021-08-29] MEDS ORDERED: cefOXitin 2 GM in Sodium Chloride 0.9% 100 ML IVPB SCH (14:00)
[2021-08-29] MEDS ORDERED: Gentamicin 400 MG in Sodium Chloride 0.9% 100 ML IVPB SCH (18:00)
[2021-08-29] MEDS: Nortriptyline HCl 25 MG CAP PO SCH (20:37)
[2021-08-30] MEDS: EMTRICITABINE PO SCH (08:04)
[2021-08-30] MEDS: TENOFOV ALAFENAM PO SCH (08:04)
[2021-08-30] MEDS: Enoxaparin Sodium 40 MG/0.4 ML SYRINGE SC SCH (08:05)
[2021-08-30] MEDS: Aspirin 81 mg Enteric Coated Tablet PO SCH (08:05)
[2021-08-30 08:46] VITALS: BP 139/76; TEMP 98.5
== END 2021-08-30 12:56 | disposition home or self-care (01) | DRG 698 ==
LOC: ERS 18:39 → T4-B 22:37
PROVIDERS: ADMIT Student in an Organized Health Care Education/Training Program; ATTEND Family Medicine
DX: T83.518A Infection and inflammatory reaction due to other urinary catheter, initial encounter (principal); Z20.822 Contact with and (suspected) exposure to COVID-19; Z21 Asymptomatic human immunodeficiency virus [HIV] infection status; A41.51 Sepsis due to Escherichia coli [E. coli]; N13.6 Pyonephrosis; N17.9 Acute kidney failure, unspecified; Z16.24 Resistance to multiple antibiotics; E87.2 Acidosis; I42.8 Other cardiomyopathies; E87.1 Hypo-osmolality and hyponatremia; Y84.6 Urinary catheterization as the cause of abnormal reaction of the patient, or of later complication, without mention of misadventure at the time of the procedure; E78.5 Hyperlipidemia, unspecified; I11.0 Hypertensive heart disease with heart failure; B96.20 Unspecified Escherichia coli [E. coli] as the cause of diseases classified elsewhere; F31.9 Bipolar disorder, unspecified; E78.00 Pure hypercholesterolemia, unspecified; I50.9 Heart failure, unspecified; R33.9 Retention of urine, unspecified; H40.9 Unspecified glaucoma; F20.9 Schizophrenia, unspecified; N31.9 Neuromuscular dysfunction of bladder, unspecified; N31.2 Flaccid neuropathic bladder, not elsewhere classified; Z91.19 Patient's noncompliance with other medical treatment and regimen; Z82.49 Family history of ischemic heart disease and other diseases of the circulatory system; Z95.810 Presence of automatic (implantable) cardiac defibrillator; Z79.899 Other long term (current) drug therapy; Z79.82 Long term (current) use of aspirin
CPT/HCPCS: 36415; 71045; 74176; 80048; 80053; 81003; 81015; 82805; 83605; 83735; 84100; 85025; 87040; 87077; 87086; 87186; 93005; 96365; 96375; J0694; J0696; J1580; J1650; J3370; J3490; J7050; U0003; U0005

== ENCOUNTER 2022-04-24 14:17 | Emergency (ER) | payer OTHER, MEDICAID ==
[2022-04-24] MEDS ORDERED: Ketamine 50 MG/ML (10ML VIAL) ONE (16:56)
== END 2022-04-24 18:40 | disposition home or self-care (01) ==
LOC: ERS 14:17
DX: S42.252A Displaced fracture of greater tuberosity of left humerus, initial encounter for closed fracture (principal); S43.015A Anterior dislocation of left humerus, initial encounter; E78.5 Hyperlipidemia, unspecified; E78.00 Pure hypercholesterolemia, unspecified; I11.0 Hypertensive heart disease with heart failure; I50.9 Heart failure, unspecified; Z79.899 Other long term (current) drug therapy; X58.XXXA Exposure to other specified factors, initial encounter
CPT/HCPCS: 23650; 99152

== ENCOUNTER 2022-04-26 09:15 | Day surgery (SDC) | payer OTHER, MEDICAID ==
[2022-04-26] MEDS ORDERED: Midazolam HCl 2 mg/2 ml Vial ONE ×2 (11:39→11:41)
[2022-04-26] MEDS ORDERED: Fentanyl 100 MCG/2 ML VIAL ONE (11:41)
[2022-04-26] MEDS ORDERED: Ropivacaine 0.5% HCl/PF (150 MG/30 ML VIAL) ONE (12:08)
[2022-04-26] MEDS ORDERED: Ropivacaine 0.2% 550 ML 550 ML NERVE BLCK SCH (12:15)
[2022-04-26] MEDS ORDERED: Ketorolac Tromethamine 30 MG/ML VIAL IVP PRN (12:15)
[2022-04-26] MEDS ORDERED: Ondansetron PF 4 MG/2 ML Vial IVP PRN (12:15)
[2022-04-26] MEDS ORDERED: Zolpidem Tartrate 5 MG TAB PO PRN (12:15)
[2022-04-26] MEDS ORDERED: HYDROcodone/Acetaminophen 5/325 mg Tablet PO PRN ×2 (12:15)
[2022-04-26] MEDS ORDERED: traMADol HCl 50 MG TAB PO PRN ×2 (12:15)
[2022-04-26] MEDS ORDERED: Promethazine HCl 25 MG/ML VIAL IM PRN (12:15)
[2022-04-26] MEDS ORDERED: Sodium Chloride 0.9% 100 ML ONE (12:21)
[2022-04-26] MEDS ORDERED: CEFAZOLIN 2 GM VIAL ONE (12:21)
[2022-04-26] MEDS ORDERED: Dexamethasone 20 MG/5 ML VIAL ONE (13:12)
[2022-04-26] MEDS ORDERED: Ondansetron PF 4 MG/2 ML Vial ONE (13:12)
[2022-04-26] MEDS ORDERED: PHENYLEPHRINE-NS 100 MCG/ML 10 ML SYRINGE ONE (13:12)
[2022-04-26] MEDS ORDERED: ePHEDrine 50 MG/ML VIAL ONE (13:12)
[2022-04-26] MEDS ORDERED: PROPOFOL 200 MG/20 ML VIAL ONE (13:12)
[2022-04-26] MEDS ORDERED: Phenylephrine 10 MG/ML VIAL ONE (14:26)
[2022-04-26] MEDS ORDERED: fentaNYL Citrate/PF 100 MCG/2 ML SYRINGE ONE (15:21)
[2022-04-26] MEDS ORDERED: HYDROcodone/Acetaminophen 5/325 mg Tablet ONE (17:29)
== END 2022-04-26 17:40 | disposition home or self-care (01) ==
LOC: SDC 09:15
PROVIDERS: ATTEND Orthopaedic Surgery
PROC: 0PSD04Z Reposition Left Humeral Head with Internal Fixation Device, Open Approach (ICD-10-PCS; principal; 2022-04-26)
DX: S42.252A Displaced fracture of greater tuberosity of left humerus, initial encounter for closed fracture (principal); I11.0 Hypertensive heart disease with heart failure; I50.9 Heart failure, unspecified; R33.9 Retention of urine, unspecified; F20.9 Schizophrenia, unspecified; F31.9 Bipolar disorder, unspecified; Z79.899 Other long term (current) drug therapy; Z20.822 Contact with and (suspected) exposure to COVID-19; W19.XXXA Unspecified fall, initial encounter
CPT/HCPCS: 23670; 73060; 76000; 87811; A4306; C1713; J0690; J1100; J2250; J2370; J2405; J2704; J2795; J3010; J3490

== ENCOUNTER 2024-01-03 13:25 | Outpatient (CLI) | payer OTHER | END 2024-01-03 13:26 | disposition home or self-care (01) | LOC: ULT 13:25 | PROVIDERS: ATTEND Urology | DX: R33.9 Retention of urine, unspecified (principal); R39.14 Feeling of incomplete bladder emptying; N28.89 Other specified disorders of kidney and ureter | CPT/HCPCS: 76770 ==